=== PATIENT | male | born 1985 | race Hispanic/Latino ===

== ENCOUNTER 2020-05-05 12:59 | Inpatient (IN) | payer OTHER ==
[2020-05-05] MEDS ORDERED: ETOMIDATE 20 MG/10 ML INJ IV ONE ×2 (13:05→13:29)
[2020-05-05] MEDS ORDERED: ROCURONIUM 50 MG/5 ML INJ IV ONE ×2 (13:05→13:29)
[2020-05-05] MEDS ORDERED: MINERAL OIL/PETROLATUM, WHITE OPHTH OINT 3.5 GM OU PRN (13:12)
[2020-05-05] MEDS ORDERED: LIP THERAPY VASELINE TP PRN (13:12)
[2020-05-05] MEDS ORDERED: SODIUM CHLORIDE 0.9% 1000 ML 1,000 ML IV ONE (13:13)
[2020-05-05] MEDS ORDERED: levETIRAcetam 1000 MG/NS 0.75% 1,000 MG/100 ML BAG IV ONE (13:15)
[2020-05-05] MEDS ORDERED: PANTOPRAZOLE 40 MG INJ IV ONE (13:24)
--- NOTE | 2020-05-05 13:24 | Emergency Department Report ---
HPI - General Time Seen by Provider: 05/05/20 13:11 - HPI HPI: This is a 34-year-old male presents to the emergency department via EMS with complaint of altered mental status and seizure-like activity. The story from EMS is that the patient began having some muscle cramps/pain earlier this afternoon. Allegedly he then went into the bathroom with his cousin in order to drink some water and while in the bathroom he apparently lost consciousness. Apparently he had a fall while in the bathroom and the patient does present with a laceration to the left ear. Since EMS arrival, as well as upon arrival to the emergency department, the patient has been confused, alte red, nonverbal and has been having some spastic and/or seizure-like activity. Also, upon arrival to the emergency department, while still outside on the ramp, the patient had an episode of vomiting that appeared as coffee-ground emesis. No known past medical history other than the patient does have a history of illicit drug use and previous accidental overdose and supposedly the patient uses methamphetamines and heroin. The patient has not been to this emergency department during the time of this EMR system and therefore there are no previous records. He is currently a poor historian given his current condition. ED Review of Systems ROS: Stated complaint: Other details as noted in HPI Comment: Unobtainable due to pts medical conditions Physical Exam - Physical Exam Physical Exam: GENERAL: Patient is ill-appearing. HENT: Normocephalic. Atraumatic. Patient has moist mucous membranes. EYES: No spontaneous eye opening. Pupils are equal, round but sluggish in response to light. NECK: Supple. Trachea is midline. CHEST/LUNGS: Clear to auscultation. There is no respiratory distress noted. HEART/CARDIOVASCULAR: Regular. There is no tachycardia. There is no murmur. ABDOMEN: Abdomen is soft, nontender. Patient has normal bowel sounds. There is no abdominal distention. SKIN: Skin is warm and dry. There is a laceration to the antihelix of the left ear that is about 2 cm in length. NEURO: The patient is altered and unresponsive to any commands. He is nonverbal. The patient shows intermittent spastic, jerking-like movements and is fighting against restraints. MUSCULOSKELETAL: There is no obvious deformity. - ABG Interpretation Ph: 7.361 PCO2: 39.5 PO2: 414 Bicarbonate: 21 Interpretation: normal - Intubation Time Out Performed: Yes Sedative: Etomidate Mg Given: 20 Paralytic: Rocuronium Mg Given: 80 Laryngoscope: other ([place] scope) Size: 4 ET Tube Size: 8 Tube Secured Depth (cm): 24 Tube Secured Location: lips Tube Placement Confirmation: visualized tube passing t, equal breath sounds bilat, confirmation by capnometr Intubation Complications: none - Laceration /Wound Repair Left Ear Wound Location: head (Antihelix of the left ear) Wound Length (cm): 2 Wound's Depth, Shape: linear Wound Explored: no foreign body removed Wound Repaired With: sutures Suture Size/Type: 5:0 Number of Sutures: 2 ED Medical Decision Making - Lab Data Result diagrams: 05/05/20 13:17 05/05/20 13:17 Lab Results 05/05/20 05/05/20 05/05/20 Range/Units 13:17 13:17 13:17 WBC 8.3 (4.5-11.0) K/mm3 RBC 4.51 (3.65-5.03) M/mm3 Hgb 13.8 (11.8-15.2) gm/dl Hct 41.9 (35.5-45.6) % MCV 93 (84-94) fl MCH 31 (28-32) pg MCHC 33 (32-34) % RDW 15.4 H (13.2-15.2) % Plt Count 144 (140-440) K/mm3 Lymph % (Auto) 18.4 (13.4-35.0) % [place] % (Auto) 8.1 H (0.0-7.3) % Eos % (Auto) 0.4 (0.0-4.3) % Baso % (Auto) 0.4 (0.0-1.8) % Lymph # (Auto) 1.5 (1.2-5.4) K/mm3 [place] # (Auto) 0.7 (0.0-0.8) K/mm3 Eos # (Auto) 0.0 (0.0-0.4) K/mm3 Baso # (Auto) 0.0 (0.0-0.1) K/mm3 Seg Neutrophils % 72.7 H (40.0-70.0) % Seg Neutrophils # 6.0 (1.8-7.7) K/mm3 PT 13.8 (12.2-14.9) Sec. INR 1.08 (0.87-1.13) APTT 32.0 (24.2-36.6) Sec. ABG pH (7.350-7.450) pH Units ABG pCO2 mm Hg ABG pO2 (80.0-90.0) mm Hg ABG HCO3 (20.0-26.0) mmol/L ABG O2 Saturation (95.0-99.0) % ABG O2 Content (0.0-44) ABG Base Excess (-2.0-3.0) mmol/L ABG Hemoglobin (14.0-18.0) gm/dl ABG Carboxyhemoglobin (0.0-5.0) % ABG Methemoglobin (0.0-1.5) % Oxyhemoglobin (95.0-99.0) % FiO2 % Sodium 140 (137-145) mmol/L Potassium 3.9 (3.6-5.0) mmol/L Chloride 107.4 H (98-107) mmol/L Carbon Dioxide 22 (22-30) mmol/L Anion Gap 15 mmol/L BUN 14 (9-20) mg/dL Creatinine 0.9 (0.8-1.3) mg/dL Estimated GFR > 60 ml/min BUN/Creatinine Ratio 16 % Glucose 114 H (75-100) mg/dL Lactic Acid (0.7-2.0) mmol/L Calcium 8.4 (8.4-10.2) mg/dL Total Bilirubin 0.40 (0.1-1.2) mg/dL AST 233 H (5-40) units/L ALT 424 H (7-56) units/L Alkaline Phosphatase 79 (35-129) units/L Ammonia (25-60) umol/L Total Creatine Kinase (55-170) units/L Troponin T (0.00-0.029) ng/mL Total Protein 7.3 (6.3-8.2) g/dL Albumin 3.6 L (3.9-5) g/dL Albumin/Globulin Ratio 1.0 % TSH (0.270-4.200) mlU/mL Urine Color (Yellow) Urine Turbidity (Clear) Urine pH (5.0-7.0) Ur Specific [place] (1.003-1.030) Urine Protein (Negative) mg/dL Urine Glucose (UA) (Negative) mg/dL Urine Ketones (Negative) mg/dL Urine Blood (Negative) Urine Nitrite (Negative) Urine Bilirubin (Negative) Urine Urobilinogen (<2.0) mg/dL Ur Leukocyte Esterase (Negative) Urine WBC (Auto) (0.0-6.0) /HPF Urine RBC (Auto) (0.0-6.0) /HPF Urine Opiates Screen Urine Methadone Screen Ur Barbiturates Screen Ur Phencyclidine Scrn Ur Amphetamines Screen U Benzodiazepines Scrn Urine Cocaine Screen U Marijuana (THC) Screen Drugs of Abuse Note Plasma/Serum Alcohol (0-0.07) % 05/05/20 05/05/20 05/05/20 Range/Units 13:17 13:17 13:17 WBC (4.5-11.0) K/mm3 RBC (3.65-5.03) M/mm3 Hgb (11.8-15.2) gm/dl Hct (35.5-45.6) % MCV (84-94) fl MCH (28-32) pg MCHC (32-34) % RDW (13.2-15.2) % Plt Count (140-440) K/mm3 Lymph % (Auto) (13.4-35.0) % [place] % (Auto) (0.0-7.3) % Eos % (Auto) (0.0-4.3) % Baso % (Auto) (0.0-1.8) % Lymph # (Auto) (1.2-5.4) K/mm3 [place] # (Auto) (0.0-0.8) K/mm3 Eos # (Auto) (0.0-0.4) K/mm3 Baso # (Auto) (0.0-0.1) K/mm3 Seg Neutrophils % (40.0-70.0) % Seg Neutrophils # (1.8-7.7) K/mm3 PT (12.2-14.9) Sec. INR (0.87-1.13) APTT (24.2-36.6) Sec. ABG pH (7.350-7.450) pH Units ABG pCO2 mm Hg ABG pO2 (80.0-90.0) mm Hg ABG HCO3 (20.0-26.0) mmol/L ABG O2 Saturation (95.0-99.0) % ABG O2 Content (0.0-44) ABG Base Excess (-2.0-3.0) mmol/L ABG Hemoglobin (14.0-18.0) gm/dl ABG Carboxyhemoglobin (0.0-5.0) % ABG Methemoglobin (0.0-1.5) % Oxyhemoglobin (95.0-99.0) % FiO2 % Sodium (137-145) mmol/L Potassium (3.6-5.0) mmol/L Chloride (98-107) mmol/L Carbon Dioxide (22-30) mmol/L Anion Gap mmol/L BUN (9-20) mg/dL Creatinine (0.8-1.3) mg/dL Estimated GFR ml/min BUN/Creatinine Ratio % Glucose (75-100) mg/dL Lactic Acid 3.00 H* (0.7-2.0) mmol/L Calcium (8.4-10.2) mg/dL Total Bilirubin (0.1-1.2) mg/dL AST (5-40) units/L ALT (7-56) units/L Alkaline Phosphatase (35-129) units/L Ammonia 36.0 (25-60) umol/L Total Creatine Kinase (55-170) units/L Troponin T (0.00-0.029) ng/mL Total Protein (6.3-8.2) g/dL Albumin (3.9-5) g/dL Albumin/Globulin Ratio % TSH (0.270-4.200) mlU/mL Urine Color (Yellow) Urine Turbidity (Clear) Urine pH (5.0-7.0) Ur Specific [place] (1.003-1.030) Urine Protein (Negative) mg/dL Urine Glucose (UA) (Negative) mg/dL Urine Ketones (Negative) mg/dL Urine Blood (Negative) Urine Nitrite (Negative) Urine Bilirubin (Negative) Urine Urobilinogen (<2.0) mg/dL Ur Leukocyte Esterase (Negative) Urine WBC (Auto) (0.0-6.0) /HPF Urine RBC (Auto) (0.0-6.0) /HPF Urine Opiates Screen Urine Methadone Screen Ur Barbiturates Screen Ur Phencyclidine Scrn Ur Amphetamines Screen U Benzodiazepines Scrn Urine Cocaine Screen U Marijuana (THC) Screen Drugs of Abuse Note Plasma/Serum Alcohol < 0.01 (0-0.07) % 05/05/20 05/05/20 05/05/20 Range/Units 13:17 13:17 13:20 WBC (4.5-11.0) K/mm3 RBC (3.65-5.03) M/mm3 Hgb (11.8-15.2) gm/dl Hct (35.5-45.6) % MCV (84-94) fl MCH (28-32) pg MCHC (32-34) % RDW (13.2-15.2) % Plt Count (140-440) K/mm3 Lymph % (Auto) (13.4-35.0) % [place] % (Auto) (0.0-7.3) % Eos % (Auto) (0.0-4.3) % Baso % (Auto) (0.0-1.8) % Lymph # (Auto) (1.2-5.4) K/mm3 [place] # (Auto) (0.0-0.8) K/mm3 Eos # (Auto) (0.0-0.4) K/mm3 Baso # (Auto) (0.0-0.1) K/mm3 Seg Neutrophils % (40.0-70.0) % Seg Neutrophils # (1.8-7.7) K/mm3 PT (12.2-14.9) Sec. INR (0.87-1.13) APTT (24.2-36.6) Sec. ABG pH (7.350-7.450) pH Units ABG pCO2 mm Hg ABG pO2 (80.0-90.0) mm Hg ABG HCO3 (20.0-26.0) mmol/L ABG O2 Saturation (95.0-99.0) % ABG O2 Content (0.0-44) ABG Base Excess (-2.0-3.0) mmol/L ABG Hemoglobin (14.0-18.0) gm/dl ABG Carboxyhemoglobin (0.0-5.0) % ABG Methemoglobin (0.0-1.5) % Oxyhemoglobin (95.0-99.0) % FiO2 % Sodium (137-145) mmol/L Potassium (3.6-5.0) mmol/L Chloride (98-107) mmol/L Carbon Dioxide (22-30) mmol/L Anion Gap mmol/L BUN (9-20) mg/dL Creatinine (0.8-1.3) mg/dL Estimated GFR ml/min BUN/Creatinine Ratio % Glucose (75-100) mg/dL Lactic Acid (0.7-2.0) mmol/L Calcium (8.4-10.2) mg/dL Total Bilirubin (0.1-1.2) mg/dL AST (5-40) units/L ALT (7-56) units/L Alkaline Phosphatase (35-129) units/L Ammonia (25-60) umol/L Total Creatine Kinase 163 (55-170) units/L Troponin T < 0.010 (0.00-0.029) ng/mL Total Protein (6.3-8.2) g/dL Albumin (3.9-5) g/dL Albumin/Globulin Ratio % TSH 0.592 (0.270-4.200) mlU/mL Urine Color Yellow (Yellow) Urine Turbidity Clear (Clear) Urine pH 6.0 (5.0-7.0) Ur Specific [place] 1.008 (1.003-1.030) Urine Protein <15 mg/dl (Negative) mg/dL Urine Glucose (UA) Neg (Negative) mg/dL Urine Ketones Neg (Negative) mg/dL Urine Blood Neg (Negative) Urine Nitrite Neg (Negative) Urine Bilirubin Neg (Negative) Urine Urobilinogen < 2.0 (<2.0) mg/dL Ur Leukocyte Esterase Neg (Negative) Urine WBC (Auto) 0.0 (0.0-6.0) /HPF Urine RBC (Auto) < 1.0 (0.0-6.0) /HPF Urine Opiates Screen Urine Methadone Screen Ur Barbiturates Screen Ur Phencyclidine Scrn Ur Amphetamines Screen U Benzodiazepines Scrn Urine Cocaine Screen U Marijuana (THC) Screen Drugs of Abuse Note Plasma/Serum Alcohol (0-0.07) % 05/05/20 05/05/20 Range/Units 13:20 14:35 WBC (4.5-11.0) K/mm3 RBC (3.65-5.03) M/mm3 Hgb (11.8-15.2) gm/dl Hct (35.5-45.6) % MCV (84-94) fl MCH (28-32) pg MCHC (32-34) % RDW (13.2-15.2) % Plt Count (140-440) K/mm3 Lymph % (Auto) (13.4-35.0) % [place] % (Auto) (0.0-7.3) % Eos % (Auto) (0.0-4.3) % Baso % (Auto) (0.0-1.8) % Lymph # (Auto) (1.2-5.4) K/mm3 [place] # (Auto) (0.0-0.8) K/mm3 Eos # (Auto) (0.0-0.4) K/mm3 Baso # (Auto) (0.0-0.1) K/mm3 Seg Neutrophils % (40.0-70.0) % Seg Neutrophils # (1.8-7.7) K/mm3 PT (12.2-14.9) Sec. INR (0.87-1.13) APTT (24.2-36.6) Sec. ABG pH 7.361 (7.350-7.450) pH Units ABG pCO2 39.5 mm Hg ABG pO2 414.7 H (80.0-90.0) mm Hg ABG HCO3 21.9 (20.0-26.0) mmol/L ABG O2 Saturation 99.6 H (95.0-99.0) % ABG O2 Content 19.7 (0.0-44) ABG Base Excess -3.2 L (-2.0-3.0) mmol/L ABG Hemoglobin 13.6 L (14.0-18.0) gm/dl ABG Carboxyhemoglobin 1.5 (0.0-5.0) % ABG Methemoglobin 0.6 (0.0-1.5) % Oxyhemoglobin 97.5 (95.0-99.0) % FiO2 100 % Sodium (137-145) mmol/L Potassium (3.6-5.0) mmol/L Chloride (98-107) mmol/L Carbon Dioxide (22-30) mmol/L Anion Gap mmol/L BUN (9-20) mg/dL Creatinine (0.8-1.3) mg/dL Estimated GFR ml/min BUN/Creatinine Ratio % Glucose (75-100) mg/dL Lactic Acid (0.7-2.0) mmol/L Calcium (8.4-10.2) mg/dL Total Bilirubin (0.1-1.2) mg/dL AST (5-40) units/L ALT (7-56) units/L Alkaline Phosphatase (35-129) units/L Ammonia (25-60) umol/L Total Creatine Kinase (55-170) units/L Troponin T (0.00-0.029) ng/mL Total Protein (6.3-8.2) g/dL Albumin (3.9-5) g/dL Albumin/Globulin Ratio % TSH (0.270-4.200) mlU/mL Urine Color (Yellow) Urine Turbidity (Clear) Urine pH (5.0-7.0) Ur Specific [place] (1.003-1.030) Urine Protein (Negative) mg/dL Urine Glucose (UA) (Negative) mg/dL Urine Ketones (Negative) mg/dL Urine Blood (Negative) Urine Nitrite (Negative) Urine Bilirubin (Negative) Urine Urobilinogen (<2.0) mg/dL Ur Leukocyte Esterase (Negative) Urine WBC (Auto) (0.0-6.0) /HPF Urine RBC (Auto) (0.0-6.0) /HPF Urine Opiates Screen Negative Urine Methadone Screen Negative Ur Barbiturates Screen Negative Ur Phencyclidine Scrn Negative Ur Amphetamines Screen Positive U Benzodiazepines Scrn Negative Urine Cocaine Screen Negative U Marijuana (THC) Screen Positive Drugs of Abuse Note Disclamer Plasma/Serum Alcohol (0-0.07) % - EKG Data -: EKG Interpreted by In EKG shows normal: sinus rhythm, axis, intervals, QRS complexes, ST-T waves Rate: normal - EKG Data When compared to previous EKG there are: previous EKG unavailable Interpretation: normal EKG - Radiology Data Radiology results: report reviewed CT head/brain wo con INDICATION / CLINICAL INFORMATION: 34 years Male; fall, trauma. TECHNIQUE: Routine CT head without contrast. All CT scans at this location are performed using CT dose reduction for ALARA by means of automated exposure control. COMPARISON: None. FINDINGS: BRAIN / INTRACRANIAL CONTENTS: No acute hemorrhage, mass effect, midline shift, hydrocephalus, or acute, large territorial infarct. No signs of significant atrophy or chronic infarct. No significant white matter abnormality seen. CRANIOCERVICAL JUNCTION: No significant abnormality. ORBITS: No significant abnormality of visualized orbits. SINUSES / MASTOIDS: Visualized paranasal sinuses and mastoid air cells are essentially clear. ADDITIONAL FINDINGS: None. IMPRESSION: 1. No focal mass, hemorrhage, hydrocephalus, or acute, large territorial infarct. Signer Name: Eliud Clifford MD, III Signed: 05/05/2020 12:5 CT facial bones wo con INDICATION / CLINICAL INFORMATION: 34 years Male; fall, trauma. TECHNIQUE: Thin cut axial images obtained. Sagittal and coronal reconstructions performed. All CT scans at this location are performed using CT dose reduction for ALARA by means of automated exposure control. COMPARISON: None available. FINDINGS: No signs of bony facial trauma. Minimal subcutaneous soft tissue swelling suggested in the left frontal region. Visualized paranasal sinuses and mastoid air cells are essentially clear. Patient is intubated and NG tube is in place. IMPRESSION: 1. No signs of acute bony facial trauma. CT cervical spine wo con INDICATION / CLINICAL INFORMATION: 34 years Male; fall, trauma. TECHNIQUE: Axial CT images of the cervical spine were obtained. Sagittal and coronal reformatted images were produced. All CT scans at this location are performed using CT dose reduction for ALARA by means of automated exposure control. COMPARISON: None available. FINDINGS: POST-SURGICAL CHANGES: None. ALIGNMENT: No significant abnormality. VERTEBRAE: No signs of fracture. Vertebral bodies are grossly normal in height throughout. No significant facet joint disease or osseous foraminal narrowing appreciated. INTRAVERTEBRAL DISCS: Disc spaces are fairly well-maintained throughout without significant canal stenosis. PARASPINAL SOFT TISSUES: No significant abnormality. ADDITIONAL FINDINGS: Patient is intubated. NG tube is in place. There is osseous foraminal narrowing on the left at C6-7 related to uncinate hypertrophy. IMPRESSION: 1. No signs of acute bony trauma to the cervical spine - Medical Decision Making This patient presents to the emergency department with some type of altered mental status or encephalopathy. The patient is having some spastic-like movements or seizure-like activity, although it does not appear consistent with typical seizure-like activity. The patient is nonverbal, not opening his eyes spontaneously, not following any commands, but appears to be fighting against any type of restraint or spontaneously lifting himself off of the gurney. The patient appears to have a GCS of 6. For this reason, as well as the patient's recent episode of vomiting upon arrival, the patient was intubated for protection of airway. There was report that the patient had a fall in the bathroom and he does present with a laceration to the antihelix of the left ear. CT scan of the head without contrast did not show any hemorrhage, large vessel occlusion, edema, or any other acute process. CT of the facial bones without contrast does not show any fracture, dislocation, retained foreign body, or any acute process. CT of the cervical spine does not show any fracture, subluxation, or any acute process. EKG did not have any morphology consistent with ST elevation myocardial infarction. The patient's labs shows a urine drug screen positive for amphetamines, and the patient has transaminitis. He also has an elevated lactic acid level of 3. The patient received some Protonix for the report of coffee-ground emesis. He received Keppra as a loading dose in case the patient did have an underlying seizure. Initially the patient was on Versed for sedation but he was moved to propofol which appears to be working better at this time. Vital signs have been reassuring throughout his ED course thus far including being afebrile. The patient will be admitted to the ICU and has been accepted for admission by the hospitalist, Dr. Simon. At the request of Dr Simon, the telemedicine neurology service has been contacted to do a consult. Critical Care Time: Yes Critical care time in (mins) excluding proc time.: 35 Critical care attestation.: If time is entered above; I have spent that time in minutes in the direct care of this critically ill patient, excluding procedure time. Critical care time was spent on this patient in doing his initial evaluation, multiple reevaluations, ordering and interpretation of labs and imaging, sedation, IV medications, IV fluid resuscitation and discussion with the hospitalist service. Critical Care Time: 35 minutes ED Disposition Clinical Impression: Encephalopathy, Transaminitis, Methamphetamine use, Encephalopathy acute Acute respiratory failure Qualifiers: Respiratory failure complication: unspecified whether with hypoxia or hypercapnia Qualified Code(s): J96.00 - Acute respiratory failure, unspecified whether with hypoxia or hypercapnia Laceration of left ear Qualifiers: Encounter type: initial encounter Qualified Code(s): S01.312A - Laceration without foreign body of left ear, initial encounter Disposition: DC-09 OP ADMIT IP TO THIS HOSP Is pt being admited?: Yes Condition: Serious Time of Disposition: 14:44
[2020-05-05 13:30] LABS: Basophils % (Auto) 0.4 % (0.0-1.8); Eosinophils % (Auto) 0.4 % (0.0-4.3); Hematocrit 41.9 % (35.5-45.6); Hemoglobin 13.8 gm/dl (11.8-15.2); Lymphocytes # (Auto) 1.5 K/mm3 (1.2-5.4); Lymphocytes % (Auto) 18.4 % (13.4-35.0); Mean Corpuscular HGB Conc 33 % (32-34); Mean Corpuscular Volume 93 fl (84-94); Monocytes # (Auto) 0.7 K/mm3 (0.0-0.8); Monocytes % (Auto) 8.1 % (0.0-7.3); Platelet Count 144 K/mm3 (140-440); Red Blood Count 4.51 M/mm3 (3.65-5.03); Red Cell Distribution Width 15.4 % (13.2-15.2)
--- NOTE | 2020-05-05 13:37 | XRay Report ---
CHEST 1 VIEW 05/05/2020 12:29 PM INDICATION / CLINICAL INFORMATION: ETT placement. COMPARISON: None available. FINDINGS: SUPPORT DEVICES: Placement of endotracheal tube with tip at the level of the clavicles, satisfactory position. Feeding tube crosses the gastroesophageal junction, tip not visualized. HEART / MEDIASTINUM: No significant abnormality. LUNGS / PLEURA: No significant pulmonary or pleural abnormality. No pneumothorax. ADDITIONAL FINDINGS: No significant additional findings. IMPRESSION: 1. Satisfactory appearance of the endotracheal tube. Signer Name: Fernie Stout MD Signed: 05/05/2020 1:33 PM Workstation Name: [id number]
--- NOTE | 2020-05-05 13:38 | XRay Report ---
ABDOMEN 1 VIEW 05/05/2020 1:27 PM INDICATION / CLINICAL INFORMATION: OG tube. COMPARISON: None available. FINDINGS: TUBES / LINES: Feeding tube crosses the gastroesophageal junction and extends to the mid stomach. BOWEL GAS PATTERN: No significant abnormality. FREE AIR / EXTRALUMINAL GAS: None. ADDITIONAL FINDINGS: No significant additional findings. IMPRESSION: 1. Satisfactory appearance of the feeding tube, as above. Signer Name: Fernie Stout MD Signed: 05/05/2020 1:33 PM Workstation Name: [id number]
[2020-05-05 13:42] LABS: INR 1.08 (0.87-1.13)
[2020-05-05 13:44] LABS: Bilirubin,Urine NEG (Negative); Blood,Urine NEG (Negative); Color,Urine Yellow (Yellow); Protein,Urine <15 mg/dL mg/dL (Negative); RBC,Urine < 1.0 /HPF (0.0-6.0); Urobilinogen,Urine < 2.0 mg/dL (<2.0)
[2020-05-05 13:47] LABS: Benzodiazepines Screen,Urine Negative; Cocaine Screen,Urine Negative; Methadone Screen,Urine Negative; Opiate Screen,Urine Negative
[2020-05-05 13:53] LABS: Alanine Aminotransferase 424 units/L (7-56); Albumin 3.6 g/dL (3.9-5); BUN/Creatinine Ratio 16; Blood Urea Nitrogen 14 mg/dL (9-20); Calcium 8.4 mg/dL (8.4-10.2); Hemolysis Index 28
[2020-05-05] MEDS ORDERED: MIDAZOLAM 100 MG in SODIUM CHLORIDE 0.9% 80 ML IV SCH (14:00)
[2020-05-05 14:01] LABS: Amphetamine Screen,Urine Positive; Cannabinoid Screen,Urine Positive
--- NOTE | 2020-05-05 14:01 | Cat Scan Report ---
CT head/brain wo con INDICATION / CLINICAL INFORMATION: 34 years Male; fall, trauma. TECHNIQUE: Routine CT head without contrast. All CT scans at this location are performed using CT dos e reduction for ALARA by means of automated exposure control. COMPARISON: None. FINDINGS: BRAIN / INTRACRANIAL CONTENTS: No acute hemorrhage, mass effect, midline shift, hydrocephalus, or acu te, large territorial infarct. No signs of significant atrophy or chronic infarct. No significant whi te matter abnormality seen. CRANIOCERVICAL JUNCTION: No significant abnormality. ORBITS: No significant abnormality of visualized orbits. SINUSES / MASTOIDS: Visualized paranasal sinuses and mastoid air cells are essentially clear. ADDITIONAL FINDINGS: None. IMPRESSION: 1. No focal mass, hemorrhage, hydrocephalus, or acute, large territorial infarct. Signer Name: Eliud Clifford MD, III Signed: 05/05/2020 1:57 PM Workstation Name: [id number]
--- NOTE | 2020-05-05 14:07 | Cat Scan Report ---
CT cervical spine wo con INDICATION / CLINICAL INFORMATION: 34 years Male; fall, trauma. TECHNIQUE: Axial CT images of the cervical spine were obtained. Sagittal and coronal reformatted images were pr oduced. All CT scans at this location are performed using CT dose reduction for ALARA by means of aut omated exposure control. COMPARISON: None available. FINDINGS: POST-SURGICAL CHANGES: None. ALIGNMENT: No significant abnormality. VERTEBRAE: No signs of fracture. Vertebral bodies are grossly normal in height throughout. No signif icant facet joint disease or osseous foraminal narrowing appreciated. INTRAVERTEBRAL DISCS: Disc spaces are fairly well-maintained throughout without significant canal sammie nosis. PARASPINAL SOFT TISSUES: No significant abnormality. ADDITIONAL FINDINGS: Patient is intubated. NG tube is in place. There is osseous foraminal narrowing on the left at C6-7 related to uncinate hypertrophy. IMPRESSION: 1. No signs of acute bony trauma to the cervical spine. Signer Name: Eliud Clifford MD, III Signed: 05/05/2020 2:03 PM Workstation Name: [email or web address]
--- NOTE | 2020-05-05 14:17 | Cat Scan Report ---
CT facial bones wo con INDICATION / CLINICAL INFORMATION: 34 years Male; fall, trauma. TECHNIQUE: Thin cut axial images obtained. Sagittal and coronal reconstructions performed. All CT scans at this location are performed using CT dose reduction for ALARA by means of automated exposure control. COMPARISON: None available. FINDINGS: No signs of bony facial trauma. Minimal subcutaneous soft tissue swelling suggested in the left front al region. Visualized paranasal sinuses and mastoid air cells are essentially clear. Patient is intubated and NG tube is in place. IMPRESSION: 1. No signs of acute bony facial trauma. Signer Name: Eliud Clifford MD, III Signed: 05/05/2020 2:12 PM Workstation Name: [id number]
[2020-05-05] MEDS: MIDAZOLAM 2 MG/2 ML INJ IV PRN ×3 (14:30→20:21)
[2020-05-05 14:53] LABS: ABG Base Excess -3.2 mmol/L (-2.0-3.0); ABG HCO3 21.9 mmol/L (20.0-26.0); ABG Methemoglobin 0.6 % (0.0-1.5); ABG Oxygen Saturation 99.6 % (95.0-99.0); ABG PCO2 39.5 mm Hg; ABG PH 7.361 pH Units (7.350-7.450); ABG PO2 414.7 mm Hg (80.0-90.0)
[2020-05-05] MEDS ORDERED: METOCLOPRAMIDE 10 MG/2 ML INJ IV PRN (15:03)
[2020-05-05] MEDS ORDERED: ACETAMINOPHEN 325 MG TAB PO PRN (15:03)
--- NOTE | 2020-05-05 15:13 | Emergency Department Report ---
ED Neuro Deficit HPI - General Chief Complaint: Altered Mental Status Time Seen by Provider: 05/05/20 13:11 Source: EMS Mode of arrival: Stretcher Limitations: Altered Mental Status - History of Present Illness Initial Comments: [facility] Tele[facility]urology Consult Services Stat Consult Date of Service: 05/05/2020 14:32:10 Impression: R56.9 - Seizures Comments/Sign-Out: 34 year old male who presents to the hospital because of unresponsiveness. Malik fernandez possibly presented with seizure secondary to drug use. CT HEAD: Showed No Acute Hemorrhage or Acute Core Infarct Metrics: [employer] Notification Time: 05/05/2020 14:30:33 Stamp Time: 05/05/2020 14:32:10 Callback Response Time: 05/05/2020 14:35:39 Our recommendations are outlined below. Recommendations: Load With Keppra 1500 mg Now EEG Imaging Studies: MRI Head Without Contrast Other WorkUp: Infectious/metabolic workup per primary team Disposition: Neurology Follow Up Recommended Sign Out: Discussed with Emergency Department Provider ---- Chief Complaint: unresponsive History of Present Illness: Patient is a 34 year old Male. 34 year old male with a history of drug use (positve amphetamines and marijuana) who presented after family found him unresponsive in the bathroom. Patient was initially complaining of muscle cramps and then went into the bathroom and was drinking salt water and then became unrepsonsive and had spasms all over. On arrival in the ED patient had to be sedated because he was trying get off the table and was being combative. NIHSS may not be reliable due to: Patient intubated and sedated. Examination: BP(133/85), Pulse(82), Blood Glucose(114) 1A: Level of Consciousness - Postures or Unresponsive + 3 1B: Ask Month and Age - Could Not Answer Either Question Correctly + 2 1C: Blink Eyes & Squeeze Hands - Performs 0 Tasks + 2 2: Test Horizontal Extraocular Movements - Normal + 0 3: Test Visual [place] - No Visual Loss + 0 4: Test Facial Palsy (Use Grimace if Obtunded) - Normal symmetry + 0 5A: Test Left Arm Motor Drift - No Movement + 4 5B: Test Right Arm Motor Drift - No Movement + 4 6A: Test Left Leg Motor Drift - No Movement + 4 6B: Test Right Leg Motor Drift - No Movement + 4 7: Test Limb Ataxia (FNF/Heel-Leiva) - No Ataxia + 0 8: Test Sensation - Normal; No sensory loss + 0 9: Test Language/Aphasia - Coma/Unresponsive + 3 10: Test Dysarthria - Normal + 0 11: Test Extinction/Inattention - No abnormality + 0 NIHSS Score: 26 Due to the immediate potential for life-threatening deterioration due to underlying acute neurologic illness, I spent 30 minutes providing critical care. This time includes time for face to face visit via telemedicine, review of medical records, imaging studies and discussion of findings with providers, the patient and/or family. Dr Jane Barone [facility] Case [id number] - Related Data Allergies/Adverse Reactions: Allergies Allergy/AdvReac Type Severity Reaction Status Date / Time Unable to Assess Allergy Unverified 05/05/20 13:20 ED Review of Systems ROS: Stated complaint: Other details as noted in HPI ED Past Medical Hx - Social History Smoking Status: Smoker, Current Status Unknown Substance Use Type: Heroin, Methamphetamines ED Neuro Physical Exam - General Limitations: Altered Mental Status Suspected Stroke: No ED Course Vital Signs 05/05/20 05/05/20 05/05/20 13:10 13:17 13:49 Temperature 97.4 F L Pulse Rate 109 H 86 Respiratory 22 18 Rate Blood Pressure 154/118 Blood Pressure [Right] O2 Sat by Pulse 100 Oximetry 05/05/20 05/05/20 05/05/20 13:53 14:43 15:09 Temperature Pulse Rate 72 61 61 Respiratory 18 18 18 Rate Blood Pressure Blood Pressure 136/88 148/85 146/89 [Right] O2 Sat by Pulse 100 100 Oximetry - Lab Data Result diagrams: 05/05/20 13:17 05/05/20 13:17 Lab Results 05/05/20 05/05/20 05/05/20 Range/Units 13:17 13:17 13:17 WBC 8.3 (4.5-11.0) K/mm3 RBC 4.51 (3.65-5.03) M/mm3 Hgb 13.8 (11.8-15.2) gm/dl Hct 41.9 (35.5-45.6) % MCV 93 (84-94) fl MCH 31 (28-32) pg MCHC 33 (32-34) % RDW 15.4 H (13.2-15.2) % Plt Count 144 (140-440) K/mm3 Lymph % (Auto) 18.4 (13.4-35.0) % [place] % (Auto) 8.1 H (0.0-7.3) % Eos % (Auto) 0.4 (0.0-4.3) % Baso % (Auto) 0.4 (0.0-1.8) % Lymph # (Auto) 1.5 (1.2-5.4) K/mm3 [place] # (Auto) 0.7 (0.0-0.8) K/mm3 Eos # (Auto) 0.0 (0.0-0.4) K/mm3 Baso # (Auto) 0.0 (0.0-0.1) K/mm3 Seg Neutrophils % 72.7 H (40.0-70.0) % Seg Neutrophils # 6.0 (1.8-7.7) K/mm3 PT 13.8 (12.2-14.9) Sec. INR 1.08 (0.87-1.13) APTT 32.0 (24.2-36.6) Sec. ABG pH (7.350-7.450) pH Units ABG pCO2 mm Hg ABG pO2 (80.0-90.0) mm Hg ABG HCO3 (20.0-26.0) mmol/L ABG O2 Saturation (95.0-99.0) % ABG O2 Content (0.0-44) ABG Base Excess (-2.0-3.0) mmol/L ABG Hemoglobin (14.0-18.0) gm/dl ABG Carboxyhemoglobin (0.0-5.0) % ABG Methemoglobin (0.0-1.5) % Oxyhemoglobin (95.0-99.0) % FiO2 % Sodium 140 (137-145) mmol/L Potassium 3.9 (3.6-5.0) mmol/L Chloride 107.4 H (98-107) mmol/L Carbon Dioxide 22 (22-30) mmol/L Anion Gap 15 mmol/L BUN 14 (9-20) mg/dL Creatinine 0.9 (0.8-1.3) mg/dL Estimated GFR > 60 ml/min BUN/Creatinine Ratio 16 % Glucose 114 H (75-100) mg/dL Lactic Acid (0.7-2.0) mmol/L Calcium 8.4 (8.4-10.2) mg/dL Total Bilirubin 0.40 (0.1-1.2) mg/dL AST 233 H (5-40) units/L ALT 424 H (7-56) units/L Alkaline Phosphatase 79 (35-129) units/L Ammonia (25-60) umol/L Total Creatine Kinase (55-170) units/L Troponin T (0.00-0.029) ng/mL Total Protein 7.3 (6.3-8.2) g/dL Albumin 3.6 L (3.9-5) g/dL Albumin/Globulin Ratio 1.0 % TSH (0.270-4.200) mlU/mL Urine Color (Yellow) Urine Turbidity (Clear) Urine pH (5.0-7.0) Ur Specific [place] (1.003-1.030) Urine Protein (Negative) mg/dL Urine Glucose (UA) (Negative) mg/dL Urine Ketones (Negative) mg/dL Urine Blood (Negative) Urine Nitrite (Negative) Urine Bilirubin (Negative) Urine Urobilinogen (<2.0) mg/dL Ur Leukocyte Esterase (Negative) Urine WBC (Auto) (0.0-6.0) /HPF Urine RBC (Auto) (0.0-6.0) /HPF Urine Opiates Screen Urine Methadone Screen Ur Barbiturates Screen Ur Phencyclidine Scrn Ur Amphetamines Screen U Benzodiazepines Scrn Urine Cocaine Screen U Marijuana (THC) Screen Drugs of Abuse Note Plasma/Serum Alcohol (0-0.07) % 05/05/20 05/05/20 05/05/20 Range/Units 13:17 13:17 13:17 WBC (4.5-11.0) K/mm3 RBC (3.65-5.03) M/mm3 Hgb (11.8-15.2) gm/dl Hct (35.5-45.6) % MCV (84-94) fl MCH (28-32) pg MCHC (32-34) % RDW (13.2-15.2) % Plt Count (140-440) K/mm3 Lymph % (Auto) (13.4-35.0) % [place] % (Auto) (0.0-7.3) % Eos % (Auto) (0.0-4.3) % Baso % (Auto) (0.0-1.8) % Lymph # (Auto) (1.2-5.4) K/mm3 [place] # (Auto) (0.0-0.8) K/mm3 Eos # (Auto) (0.0-0.4) K/mm3 Baso # (Auto) (0.0-0.1) K/mm3 Seg Neutrophils % (40.0-70.0) % Seg Neutrophils # (1.8-7.7) K/mm3 PT (12.2-14.9) Sec. INR (0.87-1.13) APTT (24.2-36.6) Sec. ABG pH (7.350-7.450) pH Units ABG pCO2 mm Hg ABG pO2 (80.0-90.0) mm Hg ABG HCO3 (20.0-26.0) mmol/L ABG O2 Saturation (95.0-99.0) % ABG O2 Content (0.0-44) ABG Base Excess (-2.0-3.0) mmol/L ABG Hemoglobin (14.0-18.0) gm/dl ABG Carboxyhemoglobin (0.0-5.0) % ABG Methemoglobin (0.0-1.5) % Oxyhemoglobin (95.0-99.0) % FiO2 % Sodium (137-145) mmol/L Potassium (3.6-5.0) mmol/L Chloride (98-107) mmol/L Carbon Dioxide (22-30) mmol/L Anion Gap mmol/L BUN (9-20) mg/dL Creatinine (0.8-1.3) mg/dL Estimated GFR ml/min BUN/Creatinine Ratio % Glucose (75-100) mg/dL Lactic Acid 3.00 H* (0.7-2.0) mmol/L Calcium (8.4-10.2) mg/dL Total Bilirubin (0.1-1.2) mg/dL AST (5-40) units/L ALT (7-56) units/L Alkaline Phosphatase (35-129) units/L Ammonia 36.0 (25-60) umol/L Total Creatine Kinase (55-170) units/L Troponin T (0.00-0.029) ng/mL Total Protein (6.3-8.2) g/dL Albumin (3.9-5) g/dL Albumin/Globulin Ratio % TSH (0.270-4.200) mlU/mL Urine Color (Yellow) Urine Turbidity (Clear) Urine pH (5.0-7.0) Ur Specific [place] (1.003-1.030) Urine Protein (Negative) mg/dL Urine Glucose (UA) (Negative) mg/dL Urine Ketones (Negative) mg/dL Urine Blood (Negative) Urine Nitrite (Negative) Urine Bilirubin (Negative) Urine Urobilinogen (<2.0) mg/dL Ur Leukocyte Esterase (Negative) Urine WBC (Auto) (0.0-6.0) /HPF Urine RBC (Auto) (0.0-6.0) /HPF Urine Opiates Screen Urine Methadone Screen Ur Barbiturates Screen Ur Phencyclidine Scrn Ur Amphetamines Screen U Benzodiazepines Scrn Urine Cocaine Screen U Marijuana (THC) Screen Drugs of Abuse Note Plasma/Serum Alcohol < 0.01 (0-0.07) % 05/05/20 05/05/20 05/05/20 Range/Units 13:17 13:17 13:20 WBC (4.5-11.0) K/mm3 RBC (3.65-5.03) M/mm3 Hgb (11.8-15.2) gm/dl Hct (35.5-45.6) % MCV (84-94) fl MCH (28-32) pg MCHC (32-34) % RDW (13.2-15.2) % Plt Count (140-440) K/mm3 Lymph % (Auto) (13.4-35.0) % [place] % (Auto) (0.0-7.3) % Eos % (Auto) (0.0-4.3) % Baso % (Auto) (0.0-1.8) % Lymph # (Auto) (1.2-5.4) K/mm3 [place] # (Auto) (0.0-0.8) K/mm3 Eos # (Auto) (0.0-0.4) K/mm3 Baso # (Auto) (0.0-0.1) K/mm3 Seg Neutrophils % (40.0-70.0) % Seg Neutrophils # (1.8-7.7) K/mm3 PT (12.2-14.9) Sec. INR (0.87-1.13) APTT (24.2-36.6) Sec. ABG pH (7.350-7.450) pH Units ABG pCO2 mm Hg ABG pO2 (80.0-90.0) mm Hg ABG HCO3 (20.0-26.0) mmol/L ABG O2 Saturation (95.0-99.0) % ABG O2 Content (0.0-44) ABG Base Excess (-2.0-3.0) mmol/L ABG Hemoglobin (14.0-18.0) gm/dl ABG Carboxyhemoglobin (0.0-5.0) % ABG Methemoglobin (0.0-1.5) % Oxyhemoglobin (95.0-99.0) % FiO2 % Sodium (137-145) mmol/L Potassium (3.6-5.0) mmol/L Chloride (98-107) mmol/L Carbon Dioxide (22-30) mmol/L Anion Gap mmol/L BUN (9-20) mg/dL Creatinine (0.8-1.3) mg/dL Estimated GFR ml/min BUN/Creatinine Ratio % Glucose (75-100) mg/dL Lactic Acid (0.7-2.0) mmol/L Calcium (8.4-10.2) mg/dL Total Bilirubin (0.1-1.2) mg/dL AST (5-40) units/L ALT (7-56) units/L Alkaline Phosphatase (35-129) units/L Ammonia (25-60) umol/L Total Creatine Kinase 163 (55-170) units/L Troponin T < 0.010 (0.00-0.029) ng/mL Total Protein (6.3-8.2) g/dL Albumin (3.9-5) g/dL Albumin/Globulin Ratio % TSH 0.592 (0.270-4.200) mlU/mL Urine Color Yellow (Yellow) Urine Turbidity Clear (Clear) Urine pH 6.0 (5.0-7.0) Ur Specific [place] 1.008 (1.003-1.030) Urine Protein <15 mg/dl (Negative) mg/dL Urine Glucose (UA) Neg (Negative) mg/dL Urine Ketones Neg (Negative) mg/dL Urine Blood Neg (Negative) Urine Nitrite Neg (Negative) Urine Bilirubin Neg (Negative) Urine Urobilinogen < 2.0 (<2.0) mg/dL Ur Leukocyte Esterase Neg (Negative) Urine WBC (Auto) 0.0 (0.0-6.0) /HPF Urine RBC (Auto) < 1.0 (0.0-6.0) /HPF Urine Opiates Screen Urine Methadone Screen Ur Barbiturates Screen Ur Phencyclidine Scrn Ur Amphetamines Screen U Benzodiazepines Scrn Urine Cocaine Screen U Marijuana (THC) Screen Drugs of Abuse Note Plasma/Serum Alcohol (0-0.07) % 05/05/20 05/05/20 Range/Units 13:20 14:35 WBC (4.5-11.0) K/mm3 RBC (3.65-5.03) M/mm3 Hgb (11.8-15.2) gm/dl Hct (35.5-45.6) % MCV (84-94) fl MCH (28-32) pg MCHC (32-34) % RDW (13.2-15.2) % Plt Count (140-440) K/mm3 Lymph % (Auto) (13.4-35.0) % [place] % (Auto) (0.0-7.3) % Eos % (Auto) (0.0-4.3) % Baso % (Auto) (0.0-1.8) % Lymph # (Auto) (1.2-5.4) K/mm3 [place] # (Auto) (0.0-0.8) K/mm3 Eos # (Auto) (0.0-0.4) K/mm3 Baso # (Auto) (0.0-0.1) K/mm3 Seg Neutrophils % (40.0-70.0) % Seg Neutrophils # (1.8-7.7) K/mm3 PT (12.2-14.9) Sec. INR (0.87-1.13) APTT (24.2-36.6) Sec. ABG pH 7.361 (7.350-7.450) pH Units ABG pCO2 39.5 mm Hg ABG pO2 414.7 H (80.0-90.0) mm Hg ABG HCO3 21.9 (20.0-26.0) mmol/L ABG O2 Saturation 99.6 H (95.0-99.0) % ABG O2 Content 19.7 (0.0-44) ABG Base Excess -3.2 L (-2.0-3.0) mmol/L ABG Hemoglobin 13.6 L (14.0-18.0) gm/dl ABG Carboxyhemoglobin 1.5 (0.0-5.0) % ABG Methemoglobin 0.6 (0.0-1.5) % Oxyhemoglobin 97.5 (95.0-99.0) % FiO2 100 % Sodium (137-145) mmol/L Potassium (3.6-5.0) mmol/L Chloride (98-107) mmol/L Carbon Dioxide (22-30) mmol/L Anion Gap mmol/L BUN (9-20) mg/dL Creatinine (0.8-1.3) mg/dL Estimated GFR ml/min BUN/Creatinine Ratio % Glucose (75-100) mg/dL Lactic Acid (0.7-2.0) mmol/L Calcium (8.4-10.2) mg/dL Total Bilirubin (0.1-1.2) mg/dL AST (5-40) units/L ALT (7-56) units/L Alkaline Phosphatase (35-129) units/L Ammonia (25-60) umol/L Total Creatine Kinase (55-170) units/L Troponin T (0.00-0.029) ng/mL Total Protein (6.3-8.2) g/dL Albumin (3.9-5) g/dL Albumin/Globulin Ratio % TSH (0.270-4.200) mlU/mL Urine Color (Yellow) Urine Turbidity (Clear) Urine pH (5.0-7.0) Ur Specific [place] (1.003-1.030) Urine Protein (Negative) mg/dL Urine Glucose (UA) (Negative) mg/dL Urine Ketones (Negative) mg/dL Urine Blood (Negative) Urine Nitrite (Negative) Urine Bilirubin (Negative) Urine Urobilinogen (<2.0) mg/dL Ur Leukocyte Esterase (Negative) Urine WBC (Auto) (0.0-6.0) /HPF Urine RBC (Auto) (0.0-6.0) /HPF Urine Opiates Screen Negative Urine Methadone Screen Negative Ur Barbiturates Screen Negative Ur Phencyclidine Scrn Negative Ur Amphetamines Screen Positive U Benzodiazepines Scrn Negative Urine Cocaine Screen Negative U Marijuana (THC) Screen Positive Drugs of Abuse Note Disclamer Plasma/Serum Alcohol (0-0.07) % Critical care attestation.: If time is entered above; I have spent that time in minutes in the direct care of this critically ill patient, excluding procedure time. ED Disposition Clinical Impression: Encephalopathy acute Disposition: DC-09 OP ADMIT IP TO THIS HOSP Is pt being admited?: Yes Condition: Serious Referrals: PRIMARY CARE, [Primary Care Provider] - 3-5 Days
--- NOTE | 2020-05-05 15:14 | History and Physical Report ---
History of Present Illness Date of examination: 05/05/20 Date of admission: 05/05/20 14:44 Chief complaint: Altered mental status Seizure-like activity History of present illness: 34-year-old male with history of illicit drug abuse and previous accidental overdose and methamphetamine abuse was brought to the emergency department via EMS with complaint of altered mental status and seizure-like activity. The patient began having some muscle cramps/pain earlier this afternoon. Allegedly he then went into the bathroom with his cousin in order to drink some water and while in the bathroom he apparently lost consciousness. Apparently he had a fall while in the bathroom and the patient does present with a laceration to the left ear. Since EMS arrival, as well as upon arrival to the emergency department, the patient has been confused, altered, nonverbal and has been having some spastic and/or seizure-like activity. Also, upon arrival to the emergency department, while still outside on the ramp, the patient had an episode of vomiting that appeared as coffee-ground emesis. Patient is status post intubated in the ER. Initial CT scan of the head shows no acute intracranial abnormality. Medications and Allergies Allergies Allergy/AdvReac Type Severity Reaction Status Date / Time Unable to Assess Allergy Unverified 05/05/20 13:20 Active Meds: Active Medications Acetaminophen (Acetaminophen 325 Mg Tab) 650 mg PO Q6H PRN PRN Reason: Pain MILD(1-3)/Fever >100.5/BETANCUR Albuterol/Ipratropium (Ipratropium/Albuterol Sulfate 3 Ml Ampul.Neb) 1 ampul IH Q6HRT DEDE Hydrophilic Ointment (Lip Therapy Vaseline) 1 applic TP Q2HR PRN PRN Reason: Dry Lips Sodium Chloride (Nacl 0.9% 1000 Ml) 1,000 mls @ 125 mls/hr IV ONCE ONE Stop: 05/05/20 21:12 Last Admin: 05/05/20 13:56 Dose: 125 mls/hr Documented by: Propofol (Diprivan 10 Mg/Ml) 1,000 mg in 100 mls @ 2.926 mls/hr IV TITR DEDE; Protocol Last Titration: 05/05/20 15:07 Dose: 20 mcg/kg/min, 11.703 mls/hr Documented by: Dextrose/Sodium Chloride (D5/0.45ns) 1,000 mls @ 125 mls/hr IV DIRECT DEDE Piperacillin Sod/Tazobactam Sod (Zosyn/Ns 4.5gm/100ml) 4.5 gm in 100 mls @ 200 mls/hr IV Q8H DEDE; Protocol Vancomycin HCl (Vancomycin/Ns 1 Gm/250 Ml) 1 gm in 250 mls @ 166.667 mls/hr IV Q12H DEDE; Protocol Metoclopramide HCl (Metoclopramide 10 Mg/2 Ml Inj) 10 mg IV Q6H PRN PRN Reason: Nausea And Vomiting Midazolam HCl (Midazolam 2 Mg/2 Ml Inj) 2 mg IV Q10MIN PRN PRN Reason: Sedation Last Admin: 05/05/20 14:30 Dose: 2 mg Documented by: Multi-Ingred Cream/Lotion/Oil/Oint (Mineral Oil/Petrolatum, White Ophth Oint 3.5 Gm) 1 applic OU Q4HR PRN PRN Reason: Dry Eye(s) Pantoprazole Sodium (Pantoprazole 40 Mg Inj) 40 mg IV BID DEDE Sodium Chloride (Sodium Chloride 0.9% 10 Ml Flush Syringe) 10 ml IV BID DEDE Sodium Chloride (Sodium Chloride 0.9% 10 Ml Flush Syringe) 10 ml IV PRN PRN PRN Reason: LINE FLUSH Review of Systems Cardiovascular: shortness of breath Gastrointestinal: hematemesis, coffee ground emesis Neurological: seizures, change in mentation Exam - Constitutional Vitals: Temp Pulse Resp BP Pulse Ox 97.4 F L 61 18 146/89 100 05/05/20 13:10 05/05/20 15:09 05/05/20 15:09 05/05/20 15:09 05/05/20 14:43 General appearance: Present: no acute distress, well-nourished - EENT Eyes: Present: PERRL ENT: hearing intact, clear oral mucosa - Neck Neck: Present: supple, normal ROM - Respiratory Respiratory effort: normal Respiratory: bilateral: diminished - Cardiovascular Heart Sounds: Present: S1 & S2. Absent: rub, click - Extremities Extremities: pulses symmetrical, No edema Peripheral Pulses: within normal limits - Abdominal General gastrointestinal: Present: soft, non-tender, non-distended, normal bowel sounds Male genitourinary: Present: normal - Integumentary Integumentary: Present: clear, warm, dry - Musculoskeletal Musculoskeletal: gait normal, strength equal bilaterally - Psychiatric Psychiatric: appropriate mood/affect, intact judgment & insight - Neurologic Neurologic: CNII-XII intact, moves all extremities HEART Score - HEART Score Troponin: Troponin T < 0.010 ng/mL (0.00-0.029) 05/05/20 13:17 Results - Labs CBC & Chem 7: 05/05/20 13:17 05/05/20 13:17 Labs: Laboratory Last Values WBC 8.3 K/mm3 (4.5-11.0) 05/05/20 13:17 RBC 4.51 M/mm3 (3.65-5.03) 05/05/20 13:17 Hgb 13.8 gm/dl (11.8-15.2) 05/05/20 13:17 Hct 41.9 % (35.5-45.6) 05/05/20 13:17 MCV 93 fl (84-94) 05/05/20 13:17 MCH 31 pg (28-32) 05/05/20 13:17 MCHC 33 % (32-34) 05/05/20 13:17 RDW 15.4 % (13.2-15.2) H 05/05/20 13:17 Plt Count 144 K/mm3 (140-440) 05/05/20 13:17 Lymph % (Auto) 18.4 % (13.4-35.0) 05/05/20 13:17 [place] % (Auto) 8.1 % (0.0-7.3) H 05/05/20 13:17 Eos % (Auto) 0.4 % (0.0-4.3) 05/05/20 13:17 Baso % (Auto) 0.4 % (0.0-1.8) 05/05/20 13:17 Lymph # (Auto) 1.5 K/mm3 (1.2-5.4) 05/05/20 13:17 [place] # (Auto) 0.7 K/mm3 (0.0-0.8) 05/05/20 13:17 Eos # (Auto) 0.0 K/mm3 (0.0-0.4) 05/05/20 13:17 Baso # (Auto) 0.0 K/mm3 (0.0-0.1) 05/05/20 13:17 Seg Neutrophils % 72.7 % (40.0-70.0) H 05/05/20 13:17 Seg Neutrophils # 6.0 K/mm3 (1.8-7.7) 05/05/20 13:17 PT 13.8 Sec. (12.2-14.9) 05/05/20 13:17 INR 1.08 (0.87-1.13) 05/05/20 13:17 APTT 32.0 Sec. (24.2-36.6) 05/05/20 13:17 ABG pH 7.361 pH Units (7.350-7.450) 05/05/20 14:35 ABG pCO2 39.5 mm Hg 05/05/20 14:35 ABG pO2 414.7 mm Hg (80.0-90.0) H 05/05/20 14:35 ABG HCO3 21.9 mmol/L (20.0-26.0) 05/05/20 14:35 ABG O2 Saturation 99.6 % (95.0-99.0) H 05/05/20 14:35 ABG O2 Content 19.7 (0.0-44) 05/05/20 14:35 ABG Base Excess -3.2 mmol/L (-2.0-3.0) L 05/05/20 14:35 ABG Hemoglobin 13.6 gm/dl (14.0-18.0) L 05/05/20 14:35 ABG Carboxyhemoglobin 1.5 % (0.0-5.0) 05/05/20 14:35 ABG Methemoglobin 0.6 % (0.0-1.5) 05/05/20 14:35 Oxyhemoglobin 97.5 % (95.0-99.0) 05/05/20 14:35 FiO2 100 % 05/05/20 14:35 Sodium 140 mmol/L (137-145) 05/05/20 13:17 Potassium 3.9 mmol/L (3.6-5.0) 05/05/20 13:17 Chloride 107.4 mmol/L (98-107) H 05/05/20 13:17 Carbon Dioxide 22 mmol/L (22-30) 05/05/20 13:17 Anion Gap 15 mmol/L 05/05/20 13:17 BUN 14 mg/dL (9-20) 05/05/20 13:17 Creatinine 0.9 mg/dL (0.8-1.3) 05/05/20 13:17 Estimated GFR > 60 ml/min 05/05/20 13:17 BUN/Creatinine Ratio 16 % 05/05/20 13:17 Glucose 114 mg/dL (75-100) H 05/05/20 13:17 Lactic Acid 3.00 mmol/L (0.7-2.0) H* 05/05/20 13:17 Calcium 8.4 mg/dL (8.4-10.2) 05/05/20 13:17 Total Bilirubin 0.40 mg/dL (0.1-1.2) 05/05/20 13:17 AST 233 units/L (5-40) H 05/05/20 13:17 ALT 424 units/L (7-56) H 05/05/20 13:17 Alkaline Phosphatase 79 units/L (35-129) 05/05/20 13:17 Ammonia 36.0 umol/L (25-60) 05/05/20 13:17 Total Creatine Kinase 163 units/L (55-170) 05/05/20 13:17 Troponin T < 0.010 ng/mL (0.00-0.029) 05/05/20 13:17 Total Protein 7.3 g/dL (6.3-8.2) 05/05/20 13:17 Albumin 3.6 g/dL (3.9-5) L 05/05/20 13:17 Albumin/Globulin Ratio 1.0 % 05/05/20 13:17 TSH 0.592 mlU/mL (0.270-4.200) 05/05/20 13:17 Urine Color Yellow (Yellow) 05/05/20 13:20 Urine Turbidity Clear (Clear) 05/05/20 13:20 Urine pH 6.0 (5.0-7.0) 05/05/20 13:20 Ur Specific [place] 1.008 (1.003-1.030) 05/05/20 13:20 Urine Protein <15 mg/dl mg/dL (Negative) 05/05/20 13:20 Urine Glucose (UA) Neg mg/dL (Negative) 05/05/20 13:20 Urine Ketones Neg mg/dL (Negative) 05/05/20 13:20 Urine Blood Neg (Negative) 05/05/20 13:20 Urine Nitrite Neg (Negative) 05/05/20 13:20 Urine Bilirubin Neg (Negative) 05/05/20 13:20 Urine Urobilinogen < 2.0 mg/dL (<2.0) 05/05/20 13:20 Ur Leukocyte Esterase Neg (Negative) 05/05/20 13:20 Urine WBC (Auto) 0.0 /HPF (0.0-6.0) 05/05/20 13:20 Urine RBC (Auto) < 1.0 /HPF (0.0-6.0) 05/05/20 13:20 Urine Opiates Screen Negative 05/05/20 13:20 Urine Methadone Screen Negative 05/05/20 13:20 Ur Barbiturates Screen Negative 05/05/20 13:20 Ur Phencyclidine Scrn Negative 05/05/20 13:20 Ur Amphetamines Screen Positive 05/05/20 13:20 U Benzodiazepines Scrn Negative 05/05/20 13:20 Urine Cocaine Screen Negative 05/05/20 13:20 U Marijuana (THC) Screen Positive 05/05/20 13:20 Drugs of Abuse Note Disclamer 05/05/20 13:20 Plasma/Serum Alcohol < 0.01 % (0-0.07) 05/05/20 13:17 - Imaging and Cardiology Chest x-ray: image reviewed CT Scan - head: image reviewed Assessment and Plan - Patient Problems (1) Acute respiratory failure Current Visit: Yes Status: Acute Plan to address problem: Admit the patient to the ICU. Patient is status post intubation. DuoNeb by nebulizer every 4 hours as needed. Reconsult pulmonary for evaluation and t reatment. Zosyn 4.5 g IV every 8 hours and vancomycin 1 g IV every 12 hours. With the blood culture and sputum culture. SCD for DVT prophylaxis and Protonix 40 mg IV every 12 hours for GI prophylaxis. Patient is a full code. (2) Encephalopathy Current Visit: Yes Status: Acute Plan to address problem: Admit the patient to the ICU. Nothing by mouth. D5 half-normal saline at the rate of 100 cc/h. We will monitor the patient closely. Initial CT scan of the head shows no acute intracranial abnormality. We will recheck CBC BMP in the morning. If needed will consult neurology (3) Transaminitis Current Visit: Yes Status: Acute Plan to address problem: N.p.o. D5 half-normal saline at the rate of 125 cc/h. Protonix 40 mg IV every 12 hours. We will recheck the CBC CMP in the morning. If needed will consult GI in the morning (4) DVT prophylaxis Current Visit: Yes Status: Acute Plan to address problem: scd for DVT prophylaxis (5) Methamphetamine use Current Visit: Yes Status: Acute Plan to address problem: Patient has history of illicit drug abuse and overdose and methamphetamine abuse. We will counseled the patient regarding quit taking drugs. (6) Coffee ground emesis Current Visit: Yes Status: Acute Plan to address problem: We will keep the patient nothing by mouth. Protonix 40 mils IV every 12 hours. Recheck CBC CMP in am. in the morning. If patient vomiting again will consult GI . (7) Seizure-like activity Current Visit: Yes Status: Acute Plan to address problem: We will order EEG and MRI of the brain without contrast. Ativan 1 to 2 mg IV every 4 hours as needed. If needed will consult neurology in the morning.
[2020-05-05] MEDS ORDERED: VANCOMYCIN/NS 1 GM/250 ML 1 GM/250 ML BAG IV SCH (16:00)
[2020-05-05] MEDS: PIPERACIL/TAZOBACTA 4.5/NS 100 4.5 GM/100 ML VIAL IV SCH (16:36)
[2020-05-05] MEDS ORDERED: VANCOMYCIN 2,000 MG in SODIUM CHLORIDE 0.9% 500 ML 500 ML IV ONE (17:00)
[2020-05-05] MEDS: LORazepam 2 MG/ML VIAL IV PRN ×2 (18:01→20:15)
[2020-05-05] MEDS: IPRATROPIUM/ALBUTEROL SULFATE 3 ML AMPUL.NEB IH SCH (20:51)
[2020-05-05] MEDS: PANTOPRAZOLE 40 MG INJ IV SCH (22:44)
[2020-05-06] MEDS: D5W/0.45% NACL 1,000 ML IV SCH ×3 (01:29→18:13)
[2020-05-06] MEDS: PIPERACIL/TAZOBACTA 4.5/NS 100 4.5 GM/100 ML VIAL IV SCH ×2 (01:29→07:48)
--- NOTE | 2020-05-06 03:28 | XRay Report ---
CHEST 1 VIEW 05/06/2020 2:19 AM INDICATION / CLINICAL INFORMATION: follow up respiratory failure. COMPARISON: 05/05/2020 FINDINGS: SUPPORT DEVICES: ET tube and NG tube again project in expected position HEART / MEDIASTINUM: No significant abnormality. LUNGS / PLEURA: No significant pulmonary or pleural abnormality. No pneumothorax. ADDITIONAL FINDINGS: No significant additional findings. IMPRESSION: 1. No acute findings. Signer Name: Christoph Koch MD Signed: 05/06/2020 3:23 AM Workstation Name: [id number]
[2020-05-06] MEDS ORDERED: VANCOMYCIN 1,500 MG in SODIUM CHLORIDE 0.9% 500 ML 500 ML IV SCH (04:00)
[2020-05-06] MEDS: IPRATROPIUM/ALBUTEROL SULFATE 3 ML AMPUL.NEB IH SCH ×2 (06:16→07:28)
[2020-05-06 06:19] LABS: Basophils % (Auto) 0.3 % (0.0-1.8); Eosinophils % (Auto) 0.1 % (0.0-4.3); Hematocrit 38.1 % (35.5-45.6); Hemoglobin 12.4 gm/dl (11.8-15.2); Lymphocytes # (Auto) 1.9 K/mm3 (1.2-5.4); Lymphocytes % (Auto) 13.2 % (13.4-35.0); Mean Corpuscular HGB Conc 33 % (32-34); Mean Corpuscular Volume 91 fl (84-94); Monocytes # (Auto) 1.6 K/mm3 (0.0-0.8); Monocytes % (Auto) 11.1 % (0.0-7.3); Platelet Count 146 K/mm3 (140-440); Red Blood Count 4.17 M/mm3 (3.65-5.03); Red Cell Distribution Width 15.1 % (13.2-15.2)
[2020-05-06 06:32] LABS: INR 1.12 (0.87-1.13)
[2020-05-06 06:33] LABS: Partial Thromboplastin Time 31.1 Sec. (24.2-36.6)
[2020-05-06 06:41] LABS: Alanine Aminotransferase 313 units/L (7-56); Albumin 3.4 g/dL (3.9-5); BUN/Creatinine Ratio 20; Blood Urea Nitrogen 18 mg/dL (9-20); Calcium 8.7 mg/dL (8.4-10.2); Hemolysis Index 36
[2020-05-06] MEDS: MIDAZOLAM 2 MG/2 ML INJ IV PRN (07:20)
[2020-05-06] MEDS: LORazepam 2 MG/ML VIAL IV PRN ×2 (07:38→16:35)
--- NOTE | 2020-05-06 08:39 | Progress Note ---
Assessment and Plan Assessment and plan: --Seizure-like activity Current Visit: Yes Status: Acute Plan to address problem: Seizure precautions , antiepileptic medications , neuro work-up Neurology consult , patient cannot drive until cleared by neurology also PMD Follow EEG and MRI CT head; no acute abnormality CT cervical spine; no trauma no acute abnormality Chest x-ray; no acute abnormality -- Acute hypoxic respiratory failure/airway protection Current Visit: Yes Status: Acute Plan to address problem: A intubated on ventilatory support DuoNeb IV antibiotics. Supportive care Pulmonary critical consulted --Acute metabolic encephalopathy Current Visit: Yes Status: Acute Plan to address problem: Secondary to seizures drug abuse Underlying disease process Neurochecks, when patient is extubated --Transaminitis probably alcohol related Current Visit: Yes Status: Acute Plan to address problem: Continue IV fluids, closely monitor transaminases Gradually trending down, consider abdominal ultrasound Monitor for any alcohol withdrawal symptoms --Substance abuse/ Methamphetamine , marijuana Current Visit: Yes Status: Acute Plan to address problem: We will dependency counselor and advice to quit recreational drug use When patient is more stable --Coffee ground emesis Current Visit: Yes Status: Acute Plan to address problem: H&H is stable, will check stool for occult blood Closely monitor H&H, consider GI consult if needed --DVT prophylaxis Current Visit: Yes Status: Acute Plan to address problem: SCDs no pharmacological anticoagulation in view of GI bleeding, Closely monitor patient and adjust management as needed Critical care time 45 minutes; The high probability of a clinically significant, sudden or life threatening deterioration of the [respiratory. GI, metabolic] system(s) required my full and direct attention, intervention and personal management. The aggregate critical care time was [45] minutes. This time is in addition to time spent performing reported procedures but includes the following: [x] Data Review and interpretation [x] Patient assessment and monitoring of vital signs [x] Documentation [x] Medication orders and management History Interval history: I seen and examined the patient at the bedside Patient's chart and medications reviewed Patient was admitted with drug overdose and seizures Intubated to protect airway Patient is on ventilatory support Vital signs noted Hospitalist Physical - Constitutional Vitals: Temp Pulse Resp BP Pulse Ox 98.1 F 106 H 23 137/77 99 05/06/20 08:00 05/06/20 08:20 05/06/20 08:20 05/06/20 08:20 05/06/20 08:20 General appearance: Present: no acute distress, well-nourished, other (Intubated on vent) - EENT Eyes: Absent: scleral icterus, conjunctival injection ENT: other (ET tube and Dobbhoff in place) - Neck Neck: Present: supple. Absent: enlarged thyroid - Respiratory Respiratory effort: normal Respiratory: bilateral: diminished, rhonchi, negative: rales, wheezing - Cardiovascular Rhythm: regular Heart Sounds: Present: S1 & S2 - Extremities Extremities: no ischemia, No edema - Abdominal General gastrointestinal: soft, non-tender, non-distended, normal bowel sounds - Integumentary Integumentary: Present: clear, warm - Psychiatric Psychiatric: other (Intubated on vent) - Neurologic Neurologic: other (Intubated on vent) HEART Score - HEART Score Troponin: Troponin T < 0.010 ng/mL (0.00-0.029) 05/05/20 13:17 Results - Labs CBC & Chem 7: 05/07/20 04:30 05/07/20 04:30 Labs: Laboratory Last Values WBC 14.2 K/mm3 (4.5-11.0) H 05/06/20 05:24 RBC 4.17 M/mm3 (3.65-5.03) 05/06/20 05:24 Hgb 12.4 gm/dl (11.8-15.2) 05/06/20 05:24 Hct 38.1 % (35.5-45.6) 05/06/20 05:24 MCV 91 fl (84-94) 05/06/20 05:24 MCH 30 pg (28-32) 05/06/20 05:24 MCHC 33 % (32-34) 05/06/20 05:24 RDW 15.1 % (13.2-15.2) 05/06/20 05:24 Plt Count 146 K/mm3 (140-440) 05/06/20 05:24 Lymph % (Auto) 13.2 % (13.4-35.0) L 05/06/20 05:24 [place] % (Auto) 11.1 % (0.0-7.3) H 05/06/20 05:24 Eos % (Auto) 0.1 % (0.0-4.3) 05/06/20 05:24 Baso % (Auto) 0.3 % (0.0-1.8) 05/06/20 05:24 Lymph # (Auto) 1.9 K/mm3 (1.2-5.4) 05/06/20 05:24 [place] # (Auto) 1.6 K/mm3 (0.0-0.8) H 05/06/20 05:24 Eos # (Auto) 0.0 K/mm3 (0.0-0.4) 05/06/20 05:24 Baso # (Auto) 0.0 K/mm3 (0.0-0.1) 05/06/20 05:24 Seg Neutrophils % 75.3 % (40.0-70.0) H 05/06/20 05:24 Seg Neutrophils # 10.7 K/mm3 (1.8-7.7) H 05/06/20 05:24 PT 14.2 Sec. (12.2-14.9) 05/06/20 05:24 INR 1.12 (0.87-1.13) 05/06/20 05:24 APTT 31.1 Sec. (24.2-36.6) 05/06/20 05:24 ABG pH 7.473 (7.320-7.450) H 05/06/20 04:16 POC ABG pCO2 33.9 mmHg (32.0-48.0) 05/06/20 04:16 ABG pCO2 39.5 mm Hg 05/05/20 14:35 POC ABG pO2 120.1 mmHg (83-108) H 05/06/20 04:16 ABG pO2 414.7 mm Hg (80.0-90.0) H 05/05/20 14:35 POC ABG HCO3 24.3 05/06/20 04:16 ABG HCO3 21.9 mmol/L (20.0-26.0) 05/05/20 14:35 ABG O2 Saturation 99.6 % (95.0-99.0) H 05/05/20 14:35 ABG O2 Content 19.7 (0.0-44) 05/05/20 14:35 POC ABG Base Excess 1.1 05/06/20 04:16 ABG Base Excess -3.2 mmol/L (-2.0-3.0) L 05/05/20 14:35 ABG Hemoglobin 12.7 (12.0-17.5) 05/06/20 04:16 ABG Oxyhemoglobin 98.1 (94-98) H 05/06/20 04:16 ABG Carboxyhemoglobin 1.5 % (0.0-5.0) 05/05/20 14:35 ABG Methemoglobin 0.3 (0.0-1.5) 05/06/20 04:16 ABG Sodium 131.1 mmol/L (136.0-145.0) L 05/06/20 04:16 ABG Potassium 3.7 mmol/L (3.40-4.50) 05/06/20 04:16 ABG Chloride 106.0 mmol/L (98-107) 05/06/20 04:16 ABG Glucose 125 mg/dL (65-95) H 05/06/20 04:16 Oxyhemoglobin 97.5 % (95.0-99.0) 05/05/20 14:35 Carboxyhemoglobin 0.3 (0.5-1.5) L 05/06/20 04:16 FiO2 30.0 05/06/20 04:16 Sodium 142 mmol/L (137-145) 05/06/20 05:24 Potassium 4.4 mmol/L (3.6-5.0) 05/06/20 05:24 Chloride 106.5 mmol/L (98-107) 05/06/20 05:24 Carbon Dioxide 23 mmol/L (22-30) 05/06/20 05:24 Anion Gap 17 mmol/L 05/06/20 05:24 BUN 18 mg/dL (9-20) 05/06/20 05:24 Creatinine 0.9 mg/dL (0.8-1.3) 05/06/20 05:24 Estimated GFR > 60 ml/min 05/06/20 05:24 BUN/Creatinine Ratio 20 % 05/06/20 05:24 Glucose 112 mg/dL (75-100) H 05/06/20 05:24 Lactic Acid 3.00 mmol/L (0.7-2.0) H* 05/05/20 13:17 Calcium 8.7 mg/dL (8.4-10.2) 05/06/20 05:24 Total Bilirubin 0.40 mg/dL (0.1-1.2) 05/06/20 05:24 AST 152 units/L (5-40) H 05/06/20 05:24 ALT 313 units/L (7-56) H 05/06/20 05:24 Alkaline Phosphatase 67 units/L (35-129) 05/06/20 05:24 Ammonia 36.0 umol/L (25-60) 05/05/20 13:17 Total Creatine Kinase 163 units/L (55-170) 05/05/20 13:17 Troponin T < 0.010 ng/mL (0.00-0.029) 05/05/20 13:17 Total Protein 6.4 g/dL (6.3-8.2) 05/06/20 05:24 Albumin 3.4 g/dL (3.9-5) L 05/06/20 05:24 Albumin/Globulin Ratio 1.1 % 05/06/20 05:24 TSH 0.592 mlU/mL (0.270-4.200) 05/05/20 13:17 Arterial Blood Glucose 125 mg/dL (65-95) H 05/06/20 04:16 Arterial Blood Ionized Calcium 4.7 mg/dL (4.6-5.3) 05/06/20 04:16 Urine Color Yellow (Yellow) 05/05/20 13:20 Urine Turbidity Clear (Clear) 05/05/20 13:20 Urine pH 6.0 (5.0-7.0) 05/05/20 13:20 Ur Specific [place] 1.008 (1.003-1.030) 05/05/20 13:20 Urine Protein <15 mg/dl mg/dL (Negative) 05/05/20 13:20 Urine Glucose (UA) Neg mg/dL (Negative) 05/05/20 13:20 Urine Ketones Neg mg/dL (Negative) 05/05/20 13:20 Urine Blood Neg (Negative) 05/05/20 13:20 Urine Nitrite Neg (Negative) 05/05/20 13:20 Urine Bilirubin Neg (Negative) 05/05/20 13:20 Urine Urobilinogen < 2.0 mg/dL (<2.0) 05/05/20 13:20 Ur Leukocyte Esterase Neg (Negative) 05/05/20 13:20 Urine WBC (Auto) 0.0 /HPF (0.0-6.0) 05/05/20 13:20 Urine RBC (Auto) < 1.0 /HPF (0.0-6.0) 05/05/20 13:20 Urine Opiates Screen Negative 05/05/20 13:20 Urine Methadone Screen Negative 05/05/20 13:20 Ur Barbiturates Screen Negative 05/05/20 13:20 Ur Phencyclidine Scrn Negative 05/05/20 13:20 Ur Amphetamines Screen Positive 05/05/20 13:20 U Benzodiazepines Scrn Negative 05/05/20 13:20 Urine Cocaine Screen Negative 05/05/20 13:20 U Marijuana (THC) Screen Positive 05/05/20 13:20 Drugs of Abuse Note Disclamer 05/05/20 13:20 Plasma/Serum Alcohol < 0.01 % (0-0.07) 05/05/20 13:17 [place]/IV: Voiding Method Incontinent Active Medications - Current Medications Current Medications: Generic Name Dose Route Start Last Admin Trade Name Freq PRN Reason Stop Dose Admin Acetaminophen 650 mg 05/05/20 15:03 Acetaminophen 325 Mg Tab PO Q6H PRN Pain MILD(1-3)/Fever >100.5/BETANCUR Albuterol/Ipratropium 1 ampul 05/05/20 20:00 05/06/20 06:16 Ipratropium/Albuterol Sulfate 3 Ml Ampul.Neb IH Not Given Q6HRT DEDE Hydrophilic Ointment 1 applic 05/05/20 13:12 Lip Therapy Vaseline TP Q2HR PRN Dry Lips Propofol 1,000 mg in 100 mls @ 2.926 mls/hr 05/05/20 15:00 05/06/20 07:42 Diprivan 10 Mg/Ml IV 50 mcg/kg/min TITR DEDE 29.257 mls/hr Administration Protocol 5 MCG/KG/MIN Dextrose/Sodium Chloride 1,000 mls @ 125 mls/hr 05/05/20 16:00 05/06/20 01:29 D5/0.45ns IV 125 mls/hr DIRECT DEDE Administration Piperacillin Sod/Tazobactam Sod 4.5 gm in 100 mls @ 200 mls/hr 05/05/20 16:00 05/06/20 07:48 Zosyn/Ns 4.5gm/100ml IV 200 mls/hr Q8H DEDE Administration Protocol Vancomycin HCl 1,500 mg/ 530 mls @ 333.333 mls/hr 05/06/20 04:00 05/06/20 05:12 Sodium Chloride IV 333.333 mls/hr Q12H DEDE Administration Lorazepam 1 mg 05/05/20 15:25 05/06/20 07:38 Lorazepam 2 Mg/Ml Vial IV 1 mg Q4H PRN Administration Agitation Metoclopramide HCl 10 mg 05/05/20 15:03 Metoclopramide 10 Mg/2 Ml Inj IV Q6H PRN Nausea And Vomiting Midazolam HCl 2 mg 05/05/20 13:12 05/06/20 07:20 Midazolam 2 Mg/2 Ml Inj IV 2 mg Q10MIN PRN Administration Sedation Multi-Ingred Cream/Lotion/Oil/Oint 1 applic 05/05/20 13:12 Mineral Oil/Petrolatum, White Ophth Oint 3.5 Gm OU Q4HR PRN Dry Eye(s) Pantoprazole Sodium 40 mg 05/05/20 22:00 05/05/20 22:44 Pantoprazole 40 Mg Inj IV 40 mg BID DEDE Administration Sodium Chloride 10 ml 05/05/20 22:00 05/06/20 07:40 Sodium Chloride 0.9% 10 Ml Flush Syringe IV Not Given BID DEDE Sodium Chloride 10 ml 05/05/20 15:03 Sodium Chloride 0.9% 10 Ml Flush Syringe IV PRN PRN LINE FLUSH
[2020-05-06] MEDS: PANTOPRAZOLE 40 MG INJ IV SCH ×2 (09:20→21:23)
--- NOTE | 2020-05-06 10:34 | Consultation ---
History of Present Illness Consult date: 05/06/20 Requesting physician: KASANDRA FAN Reason for consult: other History of present illness: 34 y/o male, presented with ams and vomiting. PER ED fearful that patient not able to protect his airway so sedated and intubated. Currently on 50 of diprovan and has PRN ativan and versed, both of which he has gotten in the last 24 hours. Unable to obtain any other history. Past History Past Medical History: other (unable to obtain) Past Surgical History: Other (unabel to obtain) Social history: other (unable to obtain) Family history: other (unable obtain) Medications and Allergies Allergies Allergy/AdvReac Type Severity Reaction Status Date / Time Unable to Assess Allergy Unverified 05/05/20 13:20 Active Meds: Active Medications Acetaminophen (Acetaminophen 325 Mg Tab) 650 mg PO Q6H PRN PRN Reason: Pain MILD(1-3)/Fever >100.5/BETANCUR Albuterol/Ipratropium (Ipratropium/Albuterol Sulfate 3 Ml Ampul.Neb) 1 ampul IH Q6HRT DEDE Last Admin: 05/06/20 06:16 Dose: Not Given Documented by: Hydrophilic Ointment (Lip Therapy Vaseline) 1 applic TP Q2HR PRN PRN Reason: Dry Lips Propofol (Diprivan 10 Mg/Ml) 1,000 mg in 100 mls @ 2.926 mls/hr IV TITR DEDE; Protocol Last Admin: 05/06/20 07:42 Dose: 50 mcg/kg/min, 29.257 mls/hr Documented by: Dextrose/Sodium Chloride (D5/0.45ns) 1,000 mls @ 125 mls/hr IV DIRECT DEDE Last Admin: 05/06/20 10:13 Dose: 125 mls/hr Documented by: Piperacillin Sod/Tazobactam Sod (Zosyn/Ns 4.5gm/100ml) 4.5 gm in 100 mls @ 200 mls/hr IV Q8H DEDE; Protocol Last Admin: 05/06/20 07:48 Dose: 200 mls/hr Documented by: Vancomycin HCl 1,500 mg/ (Sodium Chloride) 530 mls @ 333.333 mls/hr IV Q12H DEDE Last Admin: 05/06/20 05:12 Dose: 333.333 mls/hr Documented by: Lorazepam (Lorazepam 2 Mg/Ml Vial) 1 mg IV Q4H PRN PRN Reason: Agitation Last Admin: 05/06/20 07:38 Dose: 1 mg Documented by: Metoclopramide HCl (Metoclopramide 10 Mg/2 Ml Inj) 10 mg IV Q6H PRN PRN Reason: Nausea And Vomiting Midazolam HCl (Midazolam 2 Mg/2 Ml Inj) 2 mg IV Q10MIN PRN PRN Reason: Sedation Last Admin: 05/06/20 07:20 Dose: 2 mg Documented by: Multi-Ingred Cream/Lotion/Oil/Oint (Mineral Oil/Petrolatum, White Ophth Oint 3.5 Gm) 1 applic OU Q4HR PRN PRN Reason: Dry Eye(s) Pantoprazole Sodium (Pantoprazole 40 Mg Inj) 40 mg IV BID [facility] Last Admin: 05/06/20 09:20 Dose: 40 mg Documented by: Sodium Chloride (Sodium Chloride 0.9% 10 Ml Flush Syringe) 10 ml IV BID [facility] Last Admin: 05/06/20 09:20 Dose: 10 ml Documented by: Sodium Chloride (Sodium Chloride 0.9% 10 Ml Flush Syringe) 10 ml IV PRN PRN PRN Reason: LINE FLUSH Review of Systems ROS unobtainable: due to endotracheal tube, due to mental status Physical Examination Vital signs: Vital Signs Temp Pulse Resp 97.4 F L 109 H 22 05/05/20 13:10 05/05/20 13:10 05/05/20 13:10 General appearance: comatose Eyes: non-icteric ENT: other (orallyi intubated) Neck: supple Effort: normal Ascultation: Bilateral: clear Percussion: Bilateral: not dull Cardiovascular: other (sinus tach) Gastrointestinal: soft, non-tender Extremities: no edema, pink and warm, pulses normal unable to assess Results - Laboratory Findings CBC and BMP: 05/06/20 05:24 05/06/20 05:24 ABG ABG pH 7.473 (7.320-7.450) H 05/06/20 04:16 POC ABG pCO2 33.9 mmHg (32.0-48.0) 05/06/20 04:16 ABG pCO2 39.5 mm Hg 05/05/20 14:35 POC ABG pO2 120.1 mmHg (83-108) H 05/06/20 04:16 ABG pO2 414.7 mm Hg (80.0-90.0) H 05/05/20 14:35 POC ABG HCO3 24.3 05/06/20 04:16 ABG O2 Saturation 99.6 % (95.0-99.0) H 05/05/20 14:35 PT/INR, D-dimer PT 14.2 Sec. (12.2-14.9) 05/06/20 05:24 INR 1.12 (0.87-1.13) 05/06/20 05:24 Abnormal lab findings: Abnormal Labs 05/05/20 05/05/20 05/05/20 13:17 13:17 13:17 WBC RDW 15.4 H Lymph % (Auto) [place] % (Auto) 8.1 H [place] # (Auto) Seg Neutrophils % 72.7 H Seg Neutrophils # ABG pH POC ABG pO2 ABG pO2 ABG O2 Saturation ABG Base Excess ABG Hemoglobin ABG Oxyhemoglobin ABG Sodium ABG Glucose Carboxyhemoglobin Chloride 107.4 H Glucose 114 H Lactic Acid 3.00 H* AST 233 H ALT 424 H Albumin 3.6 L Arterial Blood Glucose 05/05/20 05/06/20 05/06/20 14:35 04:16 05:24 WBC 14.2 H RDW Lymph % (Auto) 13.2 L [place] % (Auto) 11.1 H [place] # (Auto) 1.6 H Seg Neutrophils % 75.3 H Seg Neutrophils # 10.7 H ABG pH 7.473 H POC ABG pO2 120.1 H ABG pO2 414.7 H ABG O2 Saturation 99.6 H ABG Base Excess -3.2 L ABG Hemoglobin 13.6 L ABG Oxyhemoglobin 98.1 H ABG Sodium 131.1 L ABG Glucose 125 H Carboxyhemoglobin 0.3 L Chloride Glucose Lactic Acid AST ALT Albumin Arterial Blood Glucose 125 H 05/06/20 05:24 WBC RDW Lymph % (Auto) [place] % (Auto) [place] # (Auto) Seg Neutrophils % Seg Neutrophils # ABG pH POC ABG pO2 ABG pO2 ABG O2 Saturation ABG Base Excess ABG Hemoglobin ABG Oxyhemoglobin ABG Sodium ABG Glucose Carboxyhemoglobin Chloride Glucose 112 H Lactic Acid AST 152 H ALT 313 H Albumin 3.4 L Arterial Blood Glucose - Diagnostic Findings Chest x-ray: image reviewed (clear) Assessment and Plan 34 y/o male with methamphetamine use and intubated for airway protection. 1. Discontinue all sedation 2. Will place on PRN ATIVAN benadrl and Haldol 3. Extubate once he starts to wake up. CCT 31 minutes.
[2020-05-06] MEDS ORDERED: diphenhydrAMINE 50 MG/ML VIAL IV PRN (10:39)
[2020-05-06] MEDS ORDERED: LORazepam 2 MG/ML VIAL IV ONE (10:55)
[2020-05-06] MEDS: HALOPERIDOL LACTATE 5 MG/1 ML INJ IV PRN ×2 (10:55→21:23)
[2020-05-07] MEDS: D5W/0.45% NACL 1,000 ML IV SCH (02:20)
[2020-05-07 04:59] LABS: Basophils % (Auto) 0.2 % (0.0-1.8); Eosinophils % (Auto) 0.3 % (0.0-4.3); Hematocrit 36.7 % (35.5-45.6); Hemoglobin 12.3 gm/dl (11.8-15.2); Lymphocytes # (Auto) 1.7 K/mm3 (1.2-5.4); Lymphocytes % (Auto) 20.4 % (13.4-35.0); Mean Corpuscular HGB Conc 33 % (32-34); Mean Corpuscular Volume 92 fl (84-94); Monocytes # (Auto) 1.1 K/mm3 (0.0-0.8); Monocytes % (Auto) 12.7 % (0.0-7.3); Platelet Count 120 K/mm3 (140-440); Red Blood Count 4.01 M/mm3 (3.65-5.03); Red Cell Distribution Width 14.9 % (13.2-15.2)
[2020-05-07 05:22] LABS: Alanine Aminotransferase 221 units/L (7-56); Albumin 3.1 g/dL (3.9-5); BUN/Creatinine Ratio 19; Blood Urea Nitrogen 15 mg/dL (9-20); Calcium 8.5 mg/dL (8.4-10.2); Hemolysis Index 5
[2020-05-07] MEDS: PANTOPRAZOLE 40 MG INJ IV SCH (09:02)
--- NOTE | 2020-05-07 09:48 | Progress Note ---
Assessment and Plan Assessment and plan: -- Airway protection; on vent/extubated 05/06/2020 Current Visit: Yes Status: Acute Plan to address problem: Continue supportive care Oxygen as needed Regular diet as tolerated --Seizure-like activity Current Visit: Yes Status: Acute Plan to address problem: No new episodes of seizures seizure precautions , antiepileptic medications , neuro work-up Neurology consult , patient cannot drive until cleared by neurology also PMD Follow EEG and MRI CT head; no acute abnormality CT cervical spine; no trauma no acute abnormality Chest x-ray; no acute abnormality --Acute metabolic encephalopathy Current Visit: Yes Status: Acute Plan to address problem: Secondary to seizures drug abuse Underlying disease process Resolved patient alert awake oriented today --Transaminitis probably alcohol/drug related Current Visit: Yes Status: Acute Plan to address problem: Gradually trending down, consider abdominal ultrasound Monitor for any alcohol withdrawal symptoms --Substance abuse/ Methamphetamine , marijuana Current Visit: Yes Status: Acute Plan to address problem: Counseled and strongly advised to quit recreational drug use Patient verbalized understanding --Coffee ground emesis Current Visit: Yes Status: Acute Plan to address problem: H&H is stable, resolved --DVT prophylaxis Current Visit: Yes Status: Acute Plan to address problem: SCDs no pharmacological anticoagulation in view of GI bleeding, Closely monitor patient and adjust management as needed Critical care time 45 minutes; The high probability of a clinically significant, sudden or life threatening deterioration of the [respiratory. GI, metabolic] system(s) required my full and direct attention, intervention and personal management. The aggregate critical care time was [35] minutes. This time is in addition to time spent performing reported procedures but includes the following: [x] Data Review and interpretation [x] Patient assessment and monitoring of vital signs [x] Documentation [x] Medication orders and management Patient may be downgraded to telemetry if okay with community affairs director Ambulate as tolerated Possible discharge tomorrow if stable Plan of care reviewed with the patient and his nurse History Interval history: I have seen and examined the patient at the bedside today Patient was extubated yesterday afternoon, today patient is saturating well room air Alert awake oriented Vital signs noted Hospitalist Physical - Constitutional Vitals: Temp Pulse Resp BP Pulse Ox 98.5 F 54 L 27 H 116/71 98 05/07/20 08:00 05/07/20 07:00 05/07/20 07:00 05/07/20 07:00 05/07/20 07:29 General appearance: Present: no acute distress, well-nourished, other (Extubated, patient alert awake oriented x3) - EENT Eyes: Present: PERRL, EOM intact - Neck Neck: Present: supple, normal ROM - Respiratory Respiratory effort: normal Respiratory: bilateral: diminished, negative: rales, rhonchi, wheezing - Cardiovascular Rhythm: regular Heart Sounds: Present: S1 & S2 - Extremities Extremities: no ischemia, No edema - Abdominal General gastrointestinal: soft, non-tender, non-distended, normal bowel sounds - Integumentary Integumentary: Present: clear, warm - Psychiatric Psychiatric: appropriate mood/affect, cooperative - Neurologic Neurologic: CNII-XII intact, moves all extremities HEART Score - HEART Score Troponin: Troponin T < 0.010 ng/mL (0.00-0.029) 05/05/20 13:17 Results - Labs CBC & Chem 7: 05/07/20 04:30 05/07/20 04:30 Labs: Laboratory Last Values WBC 8.4 K/mm3 (4.5-11.0) 05/07/20 04:30 RBC 4.01 M/mm3 (3.65-5.03) 05/07/20 04:30 Hgb 12.3 gm/dl (11.8-15.2) 05/07/20 04:30 Hct 36.7 % (35.5-45.6) 05/07/20 04:30 MCV 92 fl (84-94) 05/07/20 04:30 MCH 31 pg (28-32) 05/07/20 04:30 MCHC 33 % (32-34) 05/07/20 04:30 RDW 14.9 % (13.2-15.2) 05/07/20 04:30 Plt Count 120 K/mm3 (140-440) L 05/07/20 04:30 Lymph % (Auto) 20.4 % (13.4-35.0) 05/07/20 04:30 Oliver % (Auto) 12.7 % (0.0-7.3) H 05/07/20 04:30 Eos % (Auto) 0.3 % (0.0-4.3) 05/07/20 04:30 Baso % (Auto) 0.2 % (0.0-1.8) 05/07/20 04:30 Lymph # (Auto) 1.7 K/mm3 (1.2-5.4) 05/07/20 04:30 Oliver # (Auto) 1.1 K/mm3 (0.0-0.8) H 05/07/20 04:30 Eos # (Auto) 0.0 K/mm3 (0.0-0.4) 05/07/20 04:30 Baso # (Auto) 0.0 K/mm3 (0.0-0.1) 05/07/20 04:30 Seg Neutrophils % 66.4 % (40.0-70.0) 05/07/20 04:30 Seg Neutrophils # 5.6 K/mm3 (1.8-7.7) 05/07/20 04:30 PT 14.2 Sec. (12.2-14.9) 05/06/20 05:24 INR 1.12 (0.87-1.13) 05/06/20 05:24 APTT 31.1 Sec. (24.2-36.6) 05/06/20 05:24 ABG pH 7.473 (7.320-7.450) H 05/06/20 04:16 POC ABG pCO2 33.9 mmHg (32.0-48.0) 05/06/20 04:16 ABG pCO2 39.5 mm Hg 05/05/20 14:35 POC ABG pO2 120.1 mmHg (83-108) H 05/06/20 04:16 ABG pO2 414.7 mm Hg (80.0-90.0) H 05/05/20 14:35 POC ABG HCO3 24.3 05/06/20 04:16 ABG HCO3 21.9 mmol/L (20.0-26.0) 05/05/20 14:35 ABG O2 Saturation 99.6 % (95.0-99.0) H 05/05/20 14:35 ABG O2 Content 19.7 (0.0-44) 05/05/20 14:35 POC ABG Base Excess 1.1 05/06/20 04:16 ABG Base Excess -3.2 mmol/L (-2.0-3.0) L 05/05/20 14:35 ABG Hemoglobin 12.7 (12.0-17.5) 05/06/20 04:16 ABG Oxyhemoglobin 98.1 (94-98) H 05/06/20 04:16 ABG Carboxyhemoglobin 1.5 % (0.0-5.0) 05/05/20 14:35 ABG Methemoglobin 0.3 (0.0-1.5) 05/06/20 04:16 ABG Sodium 131.1 mmol/L (136.0-145.0) L 05/06/20 04:16 ABG Potassium 3.7 mmol/L (3.40-4.50) 05/06/20 04:16 ABG Chloride 106.0 mmol/L (98-107) 05/06/20 04:16 ABG Glucose 125 mg/dL (65-95) H 05/06/20 04:16 Oxyhemoglobin 97.5 % (95.0-99.0) 05/05/20 14:35 Carboxyhemoglobin 0.3 (0.5-1.5) L 05/06/20 04:16 FiO2 30.0 05/06/20 04:16 Sodium 139 mmol/L (137-145) 05/07/20 04:30 Potassium 3.5 mmol/L (3.6-5.0) L D 05/07/20 04:30 Chloride 106.5 mmol/L (98-107) 05/07/20 04:30 Carbon Dioxide 24 mmol/L (22-30) 05/07/20 04:30 Anion Gap 12 mmol/L 05/07/20 04:30 BUN 15 mg/dL (9-20) 05/07/20 04:30 Creatinine 0.8 mg/dL (0.8-1.3) 05/07/20 04:30 Estimated GFR > 60 ml/min 05/07/20 04:30 BUN/Creatinine Ratio 19 % 05/07/20 04:30 Glucose 126 mg/dL (75-100) H 05/07/20 04:30 Lactic Acid 3.00 mmol/L (0.7-2.0) H* 05/05/20 13:17 Calcium 8.5 mg/dL (8.4-10.2) 05/07/20 04:30 Phosphorus 2.50 mg/dL (2.5-4.5) 05/07/20 04:30 Magnesium 2.00 mg/dL (1.7-2.3) 05/07/20 04:30 Total Bilirubin 0.70 mg/dL (0.1-1.2) 05/07/20 04:30 AST 91 units/L (5-40) H 05/07/20 04:30 ALT 221 units/L (7-56) H 05/07/20 04:30 Alkaline Phosphatase 60 units/L (35-129) 05/07/20 04:30 Ammonia 36.0 umol/L (25-60) 05/05/20 13:17 Total Creatine Kinase 163 units/L (55-170) 05/05/20 13:17 Troponin T < 0.010 ng/mL (0.00-0.029) 05/05/20 13:17 Total Protein 6.4 g/dL (6.3-8.2) 05/07/20 04:30 Albumin 3.1 g/dL (3.9-5) L 05/07/20 04:30 Albumin/Globulin Ratio 0.9 % 05/07/20 04:30 TSH 0.592 mlU/mL (0.270-4.200) 05/05/20 13:17 Arterial Blood Glucose 125 mg/dL (65-95) H 05/06/20 04:16 Arterial Blood Ionized Calcium 4.7 mg/dL (4.6-5.3) 05/06/20 04:16 Urine Color Yellow (Yellow) 05/05/20 13:20 Urine Turbidity Clear (Clear) 05/05/20 13:20 Urine pH 6.0 (5.0-7.0) 05/05/20 13:20 Ur Specific [place] 1.008 (1.003-1.030) 05/05/20 13:20 Urine Protein <15 mg/dl mg/dL (Negative) 05/05/20 13:20 Urine Glucose (UA) Neg mg/dL (Negative) 05/05/20 13:20 Urine Ketones Neg mg/dL (Negative) 05/05/20 13:20 Urine Blood Neg (Negative) 05/05/20 13:20 Urine Nitrite Neg (Negative) 05/05/20 13:20 Urine Bilirubin Neg (Negative) 05/05/20 13:20 Urine Urobilinogen < 2.0 mg/dL (<2.0) 05/05/20 13:20 Ur Leukocyte Esterase Neg (Negative) 05/05/20 13:20 Urine WBC (Auto) 0.0 /HPF (0.0-6.0) 05/05/20 13:20 Urine RBC (Auto) < 1.0 /HPF (0.0-6.0) 05/05/20 13:20 Urine Opiates Screen Negative 05/05/20 13:20 Urine Methadone Screen Negative 05/05/20 13:20 Ur Barbiturates Screen Negative 05/05/20 13:20 Ur Phencyclidine Scrn Negative 05/05/20 13:20 Ur Amphetamines Screen Positive 05/05/20 13:20 U Benzodiazepines Scrn Negative 05/05/20 13:20 Urine Cocaine Screen Negative 05/05/20 13:20 U Marijuana (THC) Screen Positive 05/05/20 13:20 Drugs of Abuse Note Disclamer 05/05/20 13:20 Plasma/Serum Alcohol < 0.01 % (0-0.07) 05/05/20 13:17 Microbiology: Microbiology 05/05/20 17:39 Tracheal Aspirate Sputum Culture - Preliminary [place]/IV: Voiding Method Indwelling Catheter Active Medications - Current Medications Current Medications: Generic Name Dose Route Start Last Admin Trade Name Freq PRN Reason Stop Dose Admin Acetaminophen 650 mg 05/05/20 15:03 Acetaminophen 325 Mg Tab PO Q6H PRN Pain MILD(1-3)/Fever >100.5/BETANCUR Diphenhydramine HCl 25 mg 05/06/20 10:39 05/06/20 10:55 Diphenhydramine 50 Mg/Ml Vial IV 25 mg Q6H PRN Administration Itching Haloperidol Lactate 5 mg 05/06/20 10:39 05/06/20 21:23 Haloperidol Lactate 5 Mg/1 Ml Inj IV 5 mg Q6H PRN Administration Agitation Hydrophilic Ointment 1 applic 05/05/20 13:12 Lip Therapy Vaseline TP Q2HR PRN Dry Lips Dextrose/Sodium Chloride 1,000 mls @ 125 mls/hr 05/05/20 16:00 05/07/20 02:20 D5/0.45ns IV 125 mls/hr DIRECT DEDE Administration Lorazepam 1 mg 05/05/20 15:25 05/06/20 16:35 Lorazepam 2 Mg/Ml Vial IV 1 mg Q4H PRN Administration Agitation Metoclopramide HCl 10 mg 05/05/20 15:03 Metoclopramide 10 Mg/2 Ml Inj IV Q6H PRN Nausea And Vomiting Multi-Ingred Cream/Lotion/Oil/Oint 1 applic 05/05/20 13:12 Mineral Oil/Petrolatum, White Ophth Oint 3.5 Gm OU Q4HR PRN Dry Eye(s) Pantoprazole Sodium 40 mg 05/08/20 07:30 Pantoprazole 40 Mg Tab PO QDAC DEDE Sodium Chloride 10 ml 05/05/20 22:00 05/07/20 09:01 Sodium Chloride 0.9% 10 Ml Flush Syringe IV 10 ml BID DEDE Administration Sodium Chloride 10 ml 05/05/20 15:03 Sodium Chloride 0.9% 10 Ml Flush Syringe IV PRN PRN LINE FLUSH Nutrition/Malnutrition Assess - Dietary Evaluation Nutrition/Malnutrition Findings: Nutrition Notes Start: 05/06/20 09:25 Freq: Status: Active Protocol: Document 05/06/20 09:28 LP (Rec: 05/06/20 09:33 LP [id number]) Nutrition Notes Need for Assessment generated from: MD Order Initial or Follow up Assessment Current Diagnosis Respiratory Failure Other Pertinent Diagnosis AMS, drug abuse, coffee ground emesis Current Diet NPO Labs/Tests Reviewed Pertinent Medications D51/2NS at 125ml/hr Propofol at 29ml/hr (765kcal) Height 6 ft Weight 97.522 kg [place] Body Weight (kg) 80.90 BMI 29.1 Weight Status Overweight Subjective/Other Information Consult for evaluation of nutrition intakes. Pt on vent. Burn Absent Trauma Absent GI Symptoms None Minimum of two criteria No physical signs of malnutrition #1 Nutrition Diagnosis Inadequate oral intake Etiology ARF As Evidenced by Signs and Symptoms pt unable to consume PO due to vent Is patient on ventilator? Yes Is Patient Ambulatory and/or Out of Bed No REE-([facility]-confined to bed) 2345.952 Kcal/Kg value to use for calculation 20 Approximate Energy Requirements Using 1950 kcal/Kg Calculation Used for Recommendations Kcal/kg Additional Notes Protein needs are 117-195g (1. 2-2g/kg) Fluid needs are 1ml/kcal Nutrition Intervention Change Diet Order: TF or extubation as feasible Nutrition Support: Once consulted 18Vital 1.2 at 65ml/hr Flush with 100ml q4h Kcal 1,872 Protein (gm) 117 Fluid (mL) 1,260 Goal #1 TF consult or extubation Anticipated Discharge Needs: Unable to determine at this time Follow-Up By: 05/08/20 Additional Comments Follow for TF consult or extubation
--- NOTE | 2020-05-07 14:55 | Consultation ---
History of Present Illness Consult date: 05/07/20 Reason for Consult: Seizure Chief complaint: Seizure History of present illness: 34 yo male with heroin / methamphetamine abuse p/w possible seizure event w/ GLF. No hx of seizures. Interested in detox/rehab. Past History Past Medical History: other (as per hpi;) Past Surgical History: Other (unabel to obtain) Social history: other (unable to obtain) Family history: other (unable obtain) Medications and Allergies Allergies Allergy/AdvReac Type Severity Reaction Status Date / Time Unable to Assess Allergy Unverified 05/05/20 13:20 Active Meds: Active Medications Acetaminophen (Acetaminophen 325 Mg Tab) 650 mg PO Q6H PRN PRN Reason: Pain MILD(1-3)/Fever >100.5/BETANCUR Diphenhydramine HCl (Diphenhydramine 50 Mg/Ml Vial) 25 mg IV Q6H PRN PRN Reason: Itching Last Admin: 05/06/20 10:55 Dose: 25 mg Documented by: Haloperidol Lactate (Haloperidol Lactate 5 Mg/1 Ml Inj) 5 mg IV Q6H PRN PRN Reason: Agitation Last Admin: 05/06/20 21:23 Dose: 5 mg Documented by: Hydrophilic Ointment (Lip Therapy Vaseline) 1 applic TP Q2HR PRN PRN Reason: Dry Lips Lorazepam (Lorazepam 2 Mg/Ml Vial) 1 mg IV Q4H PRN PRN Reason: Agitation Last Admin: 05/06/20 16:35 Dose: 1 mg Documented by: Metoclopramide HCl (Metoclopramide 10 Mg/2 Ml Inj) 10 mg IV Q6H PRN PRN Reason: Nausea And Vomiting Multi-Ingred Cream/Lotion/Oil/Oint (Mineral Oil/Petrolatum, White Ophth Oint 3.5 Gm) 1 applic OU Q4HR PRN PRN Reason: Dry Eye(s) Pantoprazole Sodium (Pantoprazole 40 Mg Tab) 40 mg PO QDAC DEDE Sodium Chloride (Sodium Chloride 0.9% 10 Ml Flush Syringe) 10 ml IV BID DEDE Last Admin: 05/07/20 09:01 Dose: 10 ml Documented by: Sodium Chloride (Sodium Chloride 0.9% 10 Ml Flush Syringe) 10 ml IV PRN PRN PRN Reason: LINE FLUSH Review of Systems All systems: negative (except as per hpi;) Physical Examination - Vital Signs Vital Signs: Vital Signs Temp Pulse Resp 97.4 F L 109 H 22 05/05/20 13:10 05/05/20 13:10 05/05/20 13:10 - Physical Exam Narrative exam: Gen: nad, well-nourished; Head: normocephalic; Eyes: no gaze deviation; no ptosis; ENT: normal vocalization; CVS: warm and well-perfused; Pulm: no respiratory distress; GI: non-distended, non-protuberant; Ext: no cyanosis at distal extremities; Skin: no acute rash or hives at distal extremities; Heme: no pathologic bruising or ecchymosis at distal extremities; Neuro: alert, oriented to name, month, year, surroundings, no dysarthria, no aphasia, CN 2 - PERRL, visual rodriguez intact, CN 3, 4, 6 - EOMI, CN 5 - facial sensation symmetric to light touch, CN 7 - facial movement symmetric, CN 8 - h earing grossly intact, CN 9, 10 - uvula midline, CN 11 - shrug symmetric, CN 12 - tongue midline; Motor - at least 4/5 in all exts; Sensory - light touch symmetric, Cerebellar - coordination intact, Gait - deferred secondary to seizure risk Results - Laboratory Findings CBC and BMP: 05/07/20 04:30 05/07/20 04:30 Abnormal Lab Findings: Abnormal Labs 05/05/20 05/05/20 05/05/20 13:17 13:17 13:17 WBC RDW 15.4 H Plt Count Lymph % (Auto) Fleming % (Auto) 8.1 H Fleming # (Auto) Seg Neutrophils % 72.7 H Seg Neutrophils # ABG pH POC ABG pO2 ABG pO2 ABG O2 Saturation ABG Base Excess ABG Hemoglobin ABG Oxyhemoglobin ABG Sodium ABG Glucose Carboxyhemoglobin Potassium Chloride 107.4 H Glucose 114 H Lactic Acid 3.00 H* AST 233 H ALT 424 H Albumin 3.6 L Arterial Blood Glucose 05/05/20 05/06/20 05/06/20 14:35 04:16 05:24 WBC 14.2 H RDW Plt Count Lymph % (Auto) 13.2 L Fleming % (Auto) 11.1 H Fleming # (Auto) 1.6 H Seg Neutrophils % 75.3 H Seg Neutrophils # 10.7 H ABG pH 7.473 H POC ABG pO2 120.1 H ABG pO2 414.7 H ABG O2 Saturation 99.6 H ABG Base Excess -3.2 L ABG Hemoglobin 13.6 L ABG Oxyhemoglobin 98.1 H ABG Sodium 131.1 L ABG Glucose 125 H Carboxyhemoglobin 0.3 L Potassium Chloride Glucose Lactic Acid AST ALT Albumin Arterial Blood Glucose 125 H 05/06/20 05/07/20 05/07/20 05:24 04:30 04:30 WBC RDW Plt Count 120 L Lymph % (Auto) Fleming % (Auto) 12.7 H Fleming # (Auto) 1.1 H Seg Neutrophils % Seg Neutrophils # ABG pH POC ABG pO2 ABG pO2 ABG O2 Saturation ABG Base Excess ABG Hemoglobin ABG Oxyhemoglobin ABG Sodium ABG Glucose Carboxyhemoglobin Potassium 3.5 L D Chloride Glucose 112 H 126 H Lactic Acid AST 152 H 91 H ALT 313 H 221 H Albumin 3.4 L 3.1 L Arterial Blood Glucose Assessment and Plan 34 yo male with substance abuse w/ possible seizure activity. 1. Seizure - if EEG / MRI are abnormal, recommend Keppra 500 bid, otherwise no AEDs. 2. Substance Abuse - detox / rehab via pcp per primary team. Seth Snell MD Neurology
[2020-05-07] MEDS: oxyCODONE /ACETAMINOPHEN 5-325MG TAB PO PRN (17:24)
[2020-05-08] MEDS: oxyCODONE /ACETAMINOPHEN 5-325MG TAB PO PRN ×2 (01:27→12:44)
[2020-05-08] MEDS ORDERED: PANTOPRAZOLE 40 MG TAB PO SCH (07:30)
[2020-05-08] MEDS ORDERED: NICOTINE 14 MG/24 HR PATCH TD SCH (11:00)
[2020-05-08] MEDS ORDERED: NICOTINE 21 MG/24 HR PATCH TD SCH (11:00)
--- NOTE | 2020-05-08 11:47 | Magnetic Resonance Report ---
NONENHANCED MR SCAN OF THE BRAIN: INDICATION / CLINICAL INFORMATION: Seizure. TECHNIQUE: Multiplanar, multisequence MR images of the brain obtained. COMPARISON: CT scan of the head from 05/05/2020 FINDINGS: BRAIN / INTRACRANIAL CONTENTS: No acute ischemia, acute hemorrhage, mass effect, midline shift, or hy drocephalus. No chronic infarct or atrophy. No significant white matter abnormality. No mass lesion in the temporal and frontal lobes; hippocampi normal; no obvious findings to suggest f ocal cortical dysplasia or heterotopic whitfield matter No MR findings to suggest status epilepticus CRANIOCERVICAL JUNCTION: No significant abnormality. VASCULAR FLOW-VOIDS: No significant abnormality. ORBITS: No significant abnormality of visualized orbits. SINUSES / MASTOIDS: No significant abnormality of visualized sinuses and mastoid air cells. ADDITIONAL FINDINGS: None. IMPRESSION: 1. Normal MRI scan of the brain Signer Name: Pratibha Erwin MD Signed: 05/08/2020 9:19 AM Workstation Name: [id number]
--- NOTE | 2020-05-08 13:08 | Discharge Summary ---
Providers - Providers Date of Admission: 05/05/20 14:44 Date of discharge: 05/08/20 Attending physician: RORY HOUGH 05/05/20 13:12 Consult to Dietitian/Nutrition [CONS] Routine Physician Instructions: Reason For Exam: Reason for Consult: Evaluate nutritional intake 05/06/20 08:42 Consult to Physician [CONS] Routine Comment: Consulting Provider: TERRI BLOCK Physician Instructions: Reason For Exam: Seizures Primary care physician: SECONDARY EDUCATION PROFESSOR Hospitalization Condition: Serious Disposition: DC-01 TO HOME OR SELFCARE Time spent for discharge: 35 min Core Measure Documentation - Palliative Care Palliative Care/ Comfort Measures: Not Applicable - Core Measures Any of the following diagnoses?: none Exam - Constitutional Vitals: Temp Pulse Resp BP Pulse Ox 98.0 F 88 18 118/63 99 05/08/20 08:47 05/08/20 11:00 05/08/20 08:47 05/08/20 08:47 05/08/20 08:47 General appearance: Present: no acute distress, well-nourished - EENT Eyes: Present: PERRL, EOM intact - Neck Neck: Present: supple, normal ROM - Respiratory Respiratory effort: normal Respiratory: bilateral: diminished, negative: rales, rhonchi, wheezing - Cardiovascular Rhythm: regular Heart Sounds: Present: S1 & S2 - Extremities Extremities: no ischemia, No edema - Abdominal General gastrointestinal: Present: soft, non-tender, non-distended, normal bowel sounds - Integumentary Integumentary: Present: clear, warm - Musculoskeletal Musculoskeletal: strength equal bilaterally, generalized weakness - Psychiatric Psychiatric: appropriate mood/affect, cooperative - Neurologic Neurologic: CNII-XII intact, moves all extremities Plan Activity: advance as tolerated, other (Do not drive or operate heavy machinery under the influence of recreational drugs and alcohol) Diet: regular Additional Instructions: Advised to quit recreational drug use. Advised smoking cessation, nicotine patch as needed. Strongly advised to go for drug rehabilitation program. Advised to see private neurologist in 1 to 2 weeks or as needed. Do not drive or operate heavy machinery under the influence of recreational drugs or alcohol Follow up with: DEBORAH SALAS MD [Primary Care Provider] - 3-5 Days ROBERTA PHIPPS MD [Staff Physician] - 7 Days Prescriptions: Nicotine [Habitrol] 14 mg TD QDAY #30 patch oxyCODONE /ACETAMINOPHEN [Percocet 5/325 mg] 1 tab PO BID PRN #6 tablet PRN Reason: Pain, Moderate (4-6)
[2020-05-08 14:32] VITALS: BP 134/65
[2020-05-09] MEDS ORDERED: NICOTINE 14 MG/24 HR PATCH TD SCH (10:00)
== END 2020-05-08 15:25 | disposition home or self-care (01) | DRG 100 ==
LOC: ED 12:59 → CC1 14:44 → 4A 05-07 22:15
PROVIDERS: ADMIT Hospitalist; ATTEND Internal Medicine
PROC: 0BH17EZ Insertion of Endotracheal Airway into Trachea, Via Natural or Artificial Opening (ICD-10-PCS; principal; 2020-05-05)
PROC: 5A1935Z Respiratory Ventilation, Less than 24 Consecutive Hours (ICD-10-PCS; 2020-05-05)
PROC: 0HQ3XZZ Repair Left Ear Skin, External Approach (ICD-10-PCS; 2020-05-05)
PROC: 4A033R1 Measurement of Arterial Saturation, Peripheral, Percutaneous Approach (ICD-10-PCS; 2020-05-05)
DX: G40.89 Other seizures (principal); J96.01 Acute respiratory failure with hypoxia; S01.312A Laceration without foreign body of left ear, initial encounter; R74.01 Elevation of levels of liver transaminase levels; F15.10 Other stimulant abuse, uncomplicated; F12.10 Cannabis abuse, uncomplicated; W18.30XA Fall on same level, unspecified, initial encounter; Y93.89 Activity, other specified; Y99.8 Other external cause status; Y92.002 Bathroom of unspecified non-institutional (private) residence as the place of occurrence of the external cause
CPT/HCPCS: 36415; 36600; 70450; 70486; 70551; 71045; 72125; 74018; 80053; 80307; 80320; 81001; 82140; 82550; 82803; 82805; 83735; 84100; 84443; 84484; 85025; 85610; 85730; 87070; 87205; 93005; 94002; 94003; 94640; 94760; 96365; 96366; 96368; 96375; G0378; C9113; G0480; J1200; J1630; J1953; J2060; J2250; J2543; J2704; J3370; J7030; J7040